=== PATIENT | male | born 1955 | race Caucasian/White ===

== ENCOUNTER 2018-05-21 13:52 | Emergency (ER) | payer OTHER ==
--- OUTSIDE RECORDS SUMMARY | 2018-05-21 14:29 | XMS REPORT | Clinical Summary ---
:1955 Author Organization [facility] Address [address] [place] [address] Care Team Providers Name Role Phone Asked, No Pcp Primary Care Provider Unavailable Allergies No Known Allergies Medications Medication Sig Dispensed Refills Start Date End Date Status simvastatin (ZOCOR) 20 MG tablet 0 11/08/2016 Active MULTAQ 400 mg tablet 0 11/08/2016 Active TOPROL XL 25 mg 24 hr tablet 0 11/08/2016 Active XARELTO 20 mg tablet 0 12/17/2016 Active Active Problems Not on file Social History Tobacco Use Types Packs/Day Years Used Date Never Smoker Alcohol Use Drinks/Week oz/Week Comments No Sex Assigned at Date Recorded Not on file Job Start Date Occupation Industry Not on file Not on file Not on file Travel History Travel Start Travel End No recent travel history available. Last Filed Vital Signs Not on file Plan of Treatment Health Maintenance Due Date Last Done Comments COLON CANCER SCREENING 2003 SHINGLES VACCINES (1 of 2) 2003 INFLUENZA VACCINE 11/09/2017 PNEUMOCOCCAL POLYSACCHARIDE VACCINE AGE 65 AND OVER 2018 PNEUMOCOCCAL-13 2018 Results Not on fileafter 05/20/2017 Insurance Payer Benefit Plan / Group Subscriber ID Type Phone Address BCBS BCBS CHOICE PPO/FEDERAL EMPL PPO xxxxxxxxxxxx PPO (Work) Advance Directives Patient has advance care planning documents on file. For more information, please contact:[id number] [place] [address]
[2018-05-21] MEDS ORDERED: HYDROCODONE/APAP 7.5/325 MG TAB ONE (14:46)
--- NOTE | 2018-05-21 15:24 | RAD REPORT ---
EXAM DESCRIPTION: RAD - Chest Single View - 05/21/2018 3:03 pm CLINICAL HISTORY: Fall, rib pain COMPARISON: May 2008 TECHNIQUE: AP portable chest image was obtained 1444 hours . FINDINGS: Fibrotic lung pattern is present. No pulmonary contusion or acute lung parenchymal process . Heart and vasculature are normal. No measurable pleural effusion and no pneumothorax. No acute bone abnormality seen. Rib detail is better assessed with directed imaging. No acute aortic findings susp ected. IMPRESSION: Fibrotic lung pattern with no acute cardiopulmonary finding. Concerns for rib fracture c an be further addressed with directed right ribs series.
--- NOTE | 2018-05-21 15:31 | RAD REPORT ---
EXAM DESCRIPTION: Ribs Right - 05/21/2018 3:03 pm CLINICAL HISTORY: Fall, right-sided rib pain is COMPARISON: None. FINDINGS: No displaced or nondisplaced acute rib fractures seen. There does appear to be remodeling from an old posterior right eighth rib fracture. Patient has prominent costochondral calcifications. No aggressive rib lesion. No underlying pneumothorax, effusion, infiltrate or pulmonary contusion. IMPRESSION: No acute right-sided rib, lung parenchymal or pleural finding.
--- NOTE | 2018-05-21 15:41 | EDPHYS ---
Physician Documentation [facility] Name: Garret Castro Age: 63 yrs Sex: Male : 1955 Arrival Date: 05/21/2018 Time: 13:53 Bed Treatment Private MD: Joao Lay ED Physician Pasquale Peterson HPI: 05/21 15:53 This 63 yrs old Male presents to ER via Ambulatory with complaints of Rib kb Pain-Fell off Ladder Thurs., InQuicker. 15:53 Details of fall: The patient fell from a height, from a ladder, approximately 7 feet. kb Onset: The symptoms/episode began/occurred 3 day(s) ago. Associated injuries: The patient sustained injury to the chest, specifically the right lateral anterior chest, abrasion, pain with breathing, pain with movement, tenderness. Severity of symptoms: At their worst the symptoms were moderate, in the emergency department the symptoms are unchanged. The patient has not experienced similar symptoms in the past. The patient has not recently seen a physician. Historical: - Allergies: 14:24 No Known Allergies; ss - Home Meds: 14:24 simvastatin [Active]; ss 14:24 metoprolol [Active]; ss - Immunization history:: Adult Immunizations up to date. - Social history:: Smoking status: Patient/guardian denies using tobacco. - Ebola Screening: : Patient denies exposure to infectious person Patient denies travel to an Ebola-affected area in the 21 days before illness onset. ROS: 15:52 Constitutional: Negative for fever, chills, and weight loss, Respiratory: Negative for kb shortness of breath, cough, wheezing, and pleuritic chest pain, Abdomen/GI: Negative for abdominal pain, nausea, vomiting, diarrhea, and constipation, Back: Negative for injury and pain, : Negative for injury, bleeding, discharge, and swelling, MS/Extremity: Negative for injury and deformity, Skin: Negative for injury, rash, and discoloration, Neuro: Negative for headache, weakness, numbness, tingling, and seizure. 15:52 Cardiovascular: Positive for chest pain, with cough, with movement, of the right lateral anterior chest. Exam: 15:52 Constitutional: This is a well developed, well nourished patient who is awake, alert, kb and in no acute distress. Head/Face: Normocephalic, atraumatic. Cardiovascular: Regular rate and rhythm with a normal S1 and S2. No gallops, murmurs, or rubs. Normal PMI, no JVD. No pulse deficits. Respiratory: Lungs have equal breath sounds bilaterally, clear to auscultation and percussion. No rales, rhonchi or wheezes noted. No increased work of breathing, no retractions or nasal flaring. Abdomen/GI: Soft, non-tender, with normal bowel sounds. No distension or tympany. No guarding or rebound. No evidence of tenderness throughout. Skin: Warm, dry with normal turgor. Normal color with no rashes, no lesions, and no evidence of cellulitis. MS/ Extremity: Pulses equal, no cyanosis. Neurovascular intact. Full, normal range of motion. Neuro: Awake and alert, GCS 15, oriented to person, place, time, and situation. Cranial nerves II-XII grossly intact. Motor strength 5/5 in all extremities. Sensory grossly intact. Cerebellar exam normal. Normal gait. 15:52 Chest/axilla: Inspection: normal, Palpation: tenderness, that is moderate, of the right lateral anterior chest, that totally reproduces the patient's complaints. Vital Signs: 14:24 BP 133 / 84; Pulse 83; Resp 16; Temp 98.2(TE); Pulse Ox 99% on R/A; Weight 88.45 kg; ss Height 5 ft. 11 in. (180.34 cm); Pain 0/10; 14:24 Body Mass Index 27.20 (88.45 kg, 180.34 cm) ss MDM: 14:26 Patient medically screened. kb 15:51 Data reviewed: vital signs, nurses notes. Data interpreted: Pulse oximetry: on room air kb is 99 %. Interpretation: normal. Counseling: I had a detailed discussion with the patient and/or guardian regarding: the historical points, exam findings, and any diagnostic results supporting the discharge/admit diagnosis, radiology results, the need for outpatient follow up, a family practitioner, to return to the emergency department if symptoms worsen or persist or if there are any questions or concerns that arise at home. 05/21 14:24 Order name: Ribs Right XRAY; Complete Time: 15:37 kb 05/21 14:24 Order name: Chest Single View XRAY; Complete Time: 15:30 kb Administered Medications: 14:37 Drug: Gila (7.5 mg-325 mg) 1 tabs Route: PO; ss 15:45 Follow up: Response: No adverse reaction; Pain is decreased ss Disposition: 18:35 Co-signature as Attending Physician, Pasquale Peterson MD. rn Disposition: 05/21/18 15:40 Discharged to Home. Impression: Contusion of right front wall of thorax. - Condition is Stable. - Discharge Instructions: Chest Contusion, [id number]. - Medication Reconciliation Form, Thank You Letter, Antibiotic Education, Prescription Opioid Use form. - Follow up: Emergency Department; When: As needed; Reason: Worsening of condition. Follow up: Private Physician; When: 2 - 3 days; Reason: Recheck today's complaints, Continuance of care, Re-evaluation by your physician. Signatures: Dispatcher [employer] EDMS Gunjan Renee, FINAL INSPECTOR MOVEMENT ASSEMBLY-C FINAL INSPECTOR MOVEMENT ASSEMBLY-Ckb Pasquale Peterson MD MD rn Smirch, Shelby, RN RN Corrections: (The following items were deleted from the chart) 15:45 15:40 05/21/2018 15:40 Discharged to Home. Impression: Contusion of right front wall of ss thorax. Condition is Stable. Forms are Medication Reconciliation Form, Thank You Letter, Antibiotic Education, Prescription Opioid Use. Follow up: Emergency Department; When: As needed; Reason: Worsening of condition. Follow up: Private Physician; When: 2 - 3 days; Reason: Recheck today's complaints, Continuance of care, Re-evaluation by your physician. kb
--- NOTE | 2018-05-21 15:41 | ER ---
Nurse's Notes [facility] Name: Garret Castro Age: 63 yrs Sex: Male : 1955 Arrival Date: 05/21/2018 Time: 13:53 Bed Treatment Private MD: Joao Lay Diagnosis: Contusion of right front wall of thorax Presentation: 05/21 14:22 Presenting complaint: Patient states: "I fell off of a 7 foot ladder , and it's ss real sensitive to touch (points to R lateral chest wall.)". Transition of care: patient was not received from another setting of care. Onset of symptoms was May 18, 2018. Risk Assessment: Do you want to hurt yourself or someone else? Patient reports no desire to harm self or others. Initial Sepsis Screen: Does the patient meet any 2 criteria? No. Patient's initial sepsis screen is negative. Does the patient have a suspected source of infection? No. Patient's initial sepsis screen is negative. Care prior to arrival: None. 14:22 Method Of Arrival: Ambulatory ss 14:22 Acuity: JOSH 4 ss Historical: - Allergies: 14:24 No Known Allergies; ss - Home Meds: 14:24 simvastatin [Active]; ss 14:24 metoprolol [Active]; ss - Immunization history:: Adult Immunizations up to date. - Social history:: Smoking status: Patient/guardian denies using tobacco. - Ebola Screening: : Patient denies exposure to infectious person Patient denies travel to an Ebola-affected area in the 21 days before illness onset. Screenin:25 Abuse screen: Denies threats or abuse. Denies injuries from another. Nutritional ss screening: No deficits noted. Tuberculosis screening: No symptoms or risk factors identified. Never had TB. Fall Risk None identified. Assessment: 14:25 General: Appears in no apparent distress. comfortable, Behavior is calm, cooperative, ss Denies fever, feeling ill, fatigue, chills. Pain: Complains of pain in R lateral chest wall Pain currently is 3 out of 10 on a pain scale. Quality of pain is described as tender, Pain began 4 days ago Is continuous, Aggravated by laughing, coughing/ sneezing. Neuro: Level of Consciousness is awake, alert, obeys commands, Oriented to person, place, time, situation, Thermoscrew Operator are equal bilaterally Speech is normal. Cardiovascular: Capillary refill < 3 seconds is brisk in bilateral fingers. Respiratory: Airway is patent is compromised Respiratory effort is even, unlabored, Respiratory pattern is regular, symmetrical. Respiratory:. GI: Patient currently denies diarrhea, nausea, vomiting. : No signs and/or symptoms were reported regarding the genitourinary system. EENT: Nares are clear Throat is clear. Derm: Skin is pink, warm \\T\\ dry. normal. Musculoskeletal: Circulation, motion, and sensation intact. Range of motion: intact in all extremities, Swelling absent. Vital Signs: 14:24 BP 133 / 84; Pulse 83; Resp 16; Temp 98.2(TE); Pulse Ox 99% on R/A; Weight 88.45 kg; ss Height 5 ft. 11 in. (180.34 cm); Pain 0/10; 14:24 Body Mass Index 27.20 (88.45 kg, 180.34 cm) ss ED Course: 13:53 Patient arrived in ED. as 13:54 Joao Lay MD is Private Physician. as 14:23 Triage completed. ss 14:24 Arm band placed on right wrist. ss 14:25 Patient has correct armband on for positive identification. Bed in low position. Call ss light in reach. 14:25 Patient maintains SpO2 saturation greater than 95% on room air. ss 14:26 Gunjna Renee FNP-C is PHCP. kb 14:26 Pasquale Peterson MD is Attending Physician. kb 14:33 Matthew Shore, [place] is Primary Nurse. la1 14:59 X-ray completed. Patient tolerated procedure well. sg4 15:01 Ribs Right XRAY In Process Unspecified. EDMS 15:01 Chest Single View XRAY In Process Unspecified. EDMS 15:44 No provider procedures requiring assistance completed. Patient did not have IV access ss during this emergency room visit. Administered Medications: 14:37 Drug: Closplint (7.5 mg-325 mg) 1 tabs Route: PO; ss 15:45 Follow up: Response: No adverse reaction; Pain is decreased ss Outcome: 15:40 Discharge ordered by . kb 15:44 Discharged to home ambulatory, with family. ss 15:44 Condition: good 15:44 Discharge instructions given to patient, family, Instructed on discharge instructions, follow up and referral plans. Demonstrated understanding of instructions, follow-up care. 15:45 Patient left the ED. ss Signatures: Dispatcher [employer] Gunjan Valenzuela, MATTY MCPHERSON-Destinee Gavin Shelby, RN RN Matthew Frazier RN RN laQuiana Butterfield sg4
== END 2018-05-21 15:45 | disposition home or self-care (01) ==
LOC: ER 13:52
DX: S20.211A Contusion of right front wall of thorax, initial encounter (principal); W11.XXXA Fall on and from ladder, initial encounter
CPT/HCPCS: 71045; 99284

== ENCOUNTER 2023-07-27 17:43 | Inpatient (IN) | payer OTHER ==
--- NOTE | 2023-07-27 18:44 | RAD REPORT ---
EXAM DESCRIPTION: RAD - Chest Single View - 07/27/2023 6:33 pm CLINICAL HISTORY: Cough;Fever Chest pain. COMPARISON: Chest Single View dated 02/08/2023; Chest Pa And Lat (2 Views) dated 06/18/2019; Chest Sin gle View dated 05/21/2018; CHEST SINGLE VIEW dated 06/08/2008 FINDINGS: Portable technique limits examination quality. Mild opacities are present in the right base likely representing infiltrate/pneumonia. The lungs are otherwise grossly clear. The heart is normal in size. No displaced fractures. IMPRESSION: Developing right lung base pneumonia.
[2023-07-27] MEDS ORDERED: ONDANSETRON 4 MG/2 ML VIAL ONE ×2 (19:00→20:19)
[2023-07-27] MEDS ORDERED: NA CHLORIDE 0.9% 500 ML ONE (19:00)
[2023-07-27 19:09] LABS: Absolute Eosinophils 0.1 K/uL (0-0.5); Absolute Lymphocytes (CBC) 0.4 K/uL (0.7-4.9); Absolute Monocytes 0.5 K/uL (0.1-1.3); Absolute Neutrophil 7.4 K/uL (1.8-8.0); Basophils % 0.2 % (0-1.3); Eosinophils % 0.9 % (0-4.4); Hematocrit 44.3 % (39.6-49.0); Lymphocytes % 4.3 % (15.3-44.8); MCH 30.2 pg (27.0-35.0); MCHC 33.9 g/dL (32.0-36.0); MPV 8.6 fL (7.6-11.3); Monocytes % 5.5 % (3.3-12.3); Neutrophils % 89.1 % (41.7-73.7); Nucleated Red Blood Cells % 0.2 % (0-0); Platelets 187 thou/uL (152-406); RBC Red Blood Cell Count 4.98 M/uL (4.33-5.43); Red Cell Distribution Width 15.9 % (12.1-15.2)
[2023-07-27 19:24] LABS: SARS-CoV-2 Antigen CONTROL BLUE LINE VIS/BG OK; SARS-CoV-2 Antigen Rapid Res Negative (Negative)
[2023-07-27 19:29] LABS: Albumin 3.6 g/dL (3.4-5.0); Albumin/Globulin Ratio 0.9 (1.1-1.8); Bilirubin Total 0.5 mg/dL (0.2-1.0); Protein, Total 7.6 g/dL (6.4-8.2); Troponin High Sensitivity 4.9 pg/mL (<58.9)
[2023-07-27] MEDS ORDERED: CEFTRIAXONE 1000 MG/VIAL ONE (19:51)
[2023-07-27] MEDS ORDERED: NA CHLORIDE 0.9% 100 ML ONE (19:52)
[2023-07-27] MEDS ORDERED: AZITHROMYCIN 500 MG INJ IVPB ONE (19:52)
--- NOTE | 2023-07-27 20:04 | EDPHYS ---
Physician Documentation [facility] Name: Garret Castro Age: 68 yrs Sex: Male : 1955 Arrival Date: 07/27/2023 Time: 17:43 Bed 7 Private MD: ED Physician Elvis Mooney HPI: 07/26 17:56 This 68 yrs old Male presents to ER via Unassigned with complaints of Vomiting, General kb Weakness. 17:56 Pt is a 68 year old male who presents for cough and congestion that started 6 days ago. kb Today pt has had fever, chills and vomiting. Denies abd pain, diarrhea. . Historical: - Allergies: 18:00 No Known Allergies; ko1 - PMHx: 18:00 Hypertensive disorder; Depressive disorder; Anxiety; Hypercholesterolemia; ko1 - Immunization history:: Adult Immunizations up to date. - Infectious Disease History:: Denies. - Social history:: Smoking status: Patient denies any tobacco usage or history of. ROS: 17:56 Constitutional: As per HPI kb Exam: 17:56 Constitutional: This is a well developed, well nourished patient who is awake, alert, kb and in no acute distress. Head/Face: Normocephalic, atraumatic. ENT: Moist Mucous membranes Cardiovascular: Regular rate Respiratory: Respirations even and unlabored. No increased work of breathing. Talking in full sentences Abdomen/GI: Soft, non-tender. No distention Skin: Warm, dry with normal turgor. Normal color. MS/ Extremity: Pulses equal, no cyanosis. Neurovascular intact. Full, normal range of motion. Neuro: Awake and alert, GCS 15, oriented to person, place, time, and situation. Moves all extremities. Normal gait. 19:12 ECG was reviewed by the Attending Physician. kb Vital Signs: 17:58 BP 129 / 75; Pulse 115; Resp 18; Temp 98.4; Pulse Ox 93% on R/A; ko1 19:08 BP 118 / 75; Pulse 111; Resp 17; Pulse Ox 91% on R/A; ph 20:10 BP 122 / 72; Pulse 103; Resp 20; Pulse Ox 93% ; jj7 21:15 BP 106 / 71; Pulse 102; Resp 15; Pulse Ox 94% ; jj7 22:10 BP 109 / 73; Pulse 101; Resp 16; Temp 98.7; Pulse Ox 94% ; jj7 MDM: 17:49 Patient medically screened. kb 20:03 Differential diagnosis: pneumonia, uri, covid, flu. Data reviewed: vital signs, nurses kb notes. Consideration of Admission/Observation Patient was admitted/placed on observation. Escalation of care including admission/observation considered. Management of patient was discussed with the following: Hospitalist: Dr Leslie accepts pt for admission. Historians other than the Patient: Parent: . Counseling: I had a detailed discussion with the patient and/or guardian regarding the historical points, exam findings, and any diagnostic results supporting the discharge/admit diagnosis, lab results, radiology results, the need for further work-up and treatment in the hospital. 07/26 17:59 Order name: CBC with Diff; Complete Time: 19:12 kb 07/26 17:59 Order name: NT PRO-BNP; Complete Time: 19:33 kb 07/26 17:59 Order name: Troponin HS; Complete Time: 19:33 kb 07/26 17:59 Order name: CMP; Complete Time: 19:33 kb 07/26 17:59 Order name: Lipase; Complete Time: 19:33 kb 07/26 17:59 Order name: Flu; Complete Time: 19:28 kb 07/26 17:59 Order name: SARS-COV-2 Antigen Rapid; Complete Time: 19:28 kb 07/26 19:13 Order name: Blood Culture Adult (2) kb 07/26 19:13 Order name: Lactate w/ 2H reflex if indic.; Complete Time: 20:55 kb 07/26 19:13 Order name: Protime (+inr); Complete Time: 20:43 kb 07/26 19:13 Order name: Ptt, Activated; Complete Time: 20:43 kb 07/26 20:43 Order name: Urinalysis w/ reflexes EDMS 07/26 20:43 Order name: CBC with Automated Diff EDMS 07/26 20:43 Order name: CBC with Automated Diff EDMS 07/26 20:43 Order name: Comprehensive Metabolic Panel EDMS 07/26 20:43 Order name: Comprehensive Metabolic Panel EDMS 07/26 17:59 Order name: XRAY Chest (1 view); Complete Time: 18:45 kb 07/26 17:59 Order name: EKG; Complete Time: 18:00 kb 07/26 17:59 Order name: Cardiac monitoring; Complete Time: 19:12 kb 07/26 17:59 Order name: EKG - Nurse/Tech; Complete Time: 19:12 kb 07/26 17:59 Order name: IV Saline Lock; Complete Time: 19:03 kb 07/26 17:59 Order name: Labs collected and sent; Complete Time: 19:03 kb 07/26 17:59 Order name: O2 Per Protocol; Complete Time: 19:03 kb 07/26 17:59 Order name: O2 Sat Monitoring; Complete Time: 19:04 kb EC:12 Rate is 112 beats/min. Rhythm is regular. QRS [place] is Normal. AR interval is normal at kb 142 msec. QRS interval is normal at 88 msec. QT interval is normal at 444 msec. Administered Medications: 19:03 Drug: NS 0.9% IV 500 ml IV at calculated rate continuous Route: IV; Rate: calculated ph rate; Site: right antecubital; 20:30 Follow up: IV Status: Completed infusion jj7 19:03 Drug: Ondansetron IVP 4 mg IVP once; over 2 minutes Route: IVP; Site: right antecubital;ph 19:30 Follow up: Response: Nausea is decreased jj7 20:22 Drug: Zithromax IVPB 500 mg IVPB once over 1 hrs; mix in 250 mL NS Route: IVPB; Infused jj7 Over: 1 hrs; Site: right antecubital; 21:30 Follow up: IV Status: Completed infusion jj7 20:23 Drug: Rocephin IV 1 grams IV at calculated rate once; Given slow IV push per pharmacy jj7 instructions Route: IV; Rate: calculated rate; Site: right antecubital; 20:30 Follow up: IV Status: Completed infusion jj7 20:24 Drug: Ondansetron IVP 4 mg IVP once; over 2 minutes Route: IVP; Site: right antecubital;jj7 20:30 Follow up: Response: Nausea is decreased jj7 22:02 Drug: metoCLOPramide IVP 10 mg IVP once; over 1 to 2 minutes, Route: IVP; Site: right vc1 antecubital; 22:14 Follow up: Response: Nausea is decreased jj7 Disposition Summary: 07/27/23 20:04 Hospitalization Ordered Notes: Hospitalization Status: Observation kb Provider: Elfego Leslie Location: Telemetry/MedSurg (observation) kb Condition: Stable kb Problem: new kb Symptoms: are unchanged kb Bed/Room Type: Standard Room Assignment: 206(07/27/23 21:00) wm Diagnosis - Pneumonia, unspecified organism kb - Weakness kb Forms: - Medication Reconciliation Form kb - SBAR form kb - Leadership Thank You Letter kb Signatures: Dispatcher [employer] EDMS Gunjan Renee FNP-Ritu PROFESSOR OF ENVIRONMENTAL ENGINEERING-CkElle Maradiaga, RN RN Mine Salgado Marilyn Olivia RN RN vc1 Miriam Medina RN RN ko1 George Toledo RN RN jj7 Corrections: (The following items were deleted from the chart) 18:00 17:59 CBC+H.LAB.BRZ ordered. EDMS EDMS 18:00 17:59 PROBNP+C.LAB.BRZ ordered. EDMS EDMS 18:00 17:59 Troponin High Sensitivity+C.LAB.BRZ ordered. EDMS EDMS 18:00 17:59 COMPREHENSIVE METABOLIC PANEL+C.LAB.BRZ ordered. EDMS EDMS 18:00 17:59 LIPASE+C.LAB.BRZ ordered. EDMS EDMS 18:00 17:59 Influenza Screen (A \T\ B)+BA.LAB.BRZ ordered. EDMS EDMS 18:00 17:59 SARS-COV-2 Antigen Rapid+I.LAB.BRZ ordered. EDMS EDMS 21:00 20:04 kb wm
--- NOTE | 2023-07-27 20:04 | ER ---
Nurse's Notes [facility] Name: Garret Castro Age: 68 yrs Sex: Male : 1955 Arrival Date: 07/27/2023 Time: 17:43 Bed 7 Private MD: Diagnosis: Pneumonia, unspecified organism;Weakness Presentation: 07/26 17:58 Chief complaint: Patient states: cough, congestion x 6 days now n/v cant keep anything ko1 down, has had Tmax of 100. Coronavirus screen: At this time, the client does not indicate any symptoms associated with coronavirus-19. Ebola Screen: No symptoms or risks identified at this time. Initial Sepsis Screen: Does the patient meet any 2 criteria? No. Patient's initial sepsis screen is negative. Does the patient have a suspected source of infection? No. Patient's initial sepsis screen is negative. Risk Assessment: Do you want to hurt yourself or someone else? Patient reports no desire to harm self or others. Onset of symptoms is unknown. 17:58 Method Of Arrival: Wheelchair ko1 17:58 Acuity: JOSH 3 ko1 Triage Assessment: 18:00 General: Appears in no apparent distress. Behavior is calm, cooperative, appropriate ko1 for age. Pain: Complains of pain in abdomen. EENT: Reports nasal congestion. Respiratory: Reports cough that is. GI: Reports nausea, vomiting. Historical: - Allergies: 18:00 No Known Allergies; ko1 - PMHx: 18:00 Hypertensive disorder; Depressive disorder; Anxiety; Hypercholesterolemia; ko1 - Immunization history:: Adult Immunizations up to date. - Infectious Disease History:: Denies. - Social history:: Smoking status: Patient denies any tobacco usage or history of. Screenin:41 Abuse screen: Denies threats or abuse. Denies injuries from another. Nutritional ph screening: No deficits noted. Tuberculosis screening: No symptoms or risk factors identified. 19:08 [facility] ED Fall Risk Assessment (Adult) History of falling in the last 3 months, ph including since admission No falls in past 3 months (0 pts) Confusion or Disorientation No (0 pts) Intoxicated or Sedated No (0 pts) Impaired Gait No (0 pts) Mobility Assist Device Used No (0 pt) Altered Elimination No (0 pt) Score/Fall Risk Level 0 - 2 = Low Risk Oriented to surroundings, Maintained a safe environment, Hourly rounding (assess needs \T\ fall precautionary measures) done. Assessment: 19:04 General: Appears in no apparent distress. comfortable, well groomed, Behavior is calm, ph cooperative, appropriate for age, Reports fever for 1-2 days. Pain: Denies pain. Neuro: Level of Consciousness is awake, alert, obeys commands, Oriented to person, place, time, situation. Cardiovascular: Capillary refill < 3 seconds in bilateral fingers Patient's skin is warm and dry. Respiratory: Airway is patent Respiratory effort is even, unlabored, Respiratory pattern is regular, symmetrical. GI: Abdomen is non-distended, Reports nausea, vomiting, Patient currently denies abdominal pain, vomiting. 20:05 General: Appears in no apparent distress. comfortable, Behavior is calm, cooperative, jj7 appropriate for age. Respiratory: Airway is patent Respiratory effort is even, unlabored, Respiratory pattern is regular, symmetrical. Vital Signs: 17:58 BP 129 / 75; Pulse 115; Resp 18; Temp 98.4; Pulse Ox 93% on R/A; ko1 19:08 BP 118 / 75; Pulse 111; Resp 17; Pulse Ox 91% on R/A; ph 20:10 BP 122 / 72; Pulse 103; Resp 20; Pulse Ox 93% ; jj7 21:15 BP 106 / 71; Pulse 102; Resp 15; Pulse Ox 94% ; jj7 22:10 BP 109 / 73; Pulse 101; Resp 16; Temp 98.7; Pulse Ox 94% ; jj7 ED Course: 17:45 Patient arrived in ED. im 17:49 Gun[facility] Renee F[facility]-C is [facility]. kb 17:49 Elvis Mooney MD is Attending Physician. kb 18:00 Triage completed. ko1 18:00 Arm band placed on right wrist. Patient placed in an exam room, on a stretcher, on ko1 monitoring manager, on pulse oximetry, Patient notified of wait time. 18:35 XRAY Chest (1 view) In Process Unspecified. EDMS 18:37 Elle Paredes, RN is Primary Nurse. ph 19:03 Inserted saline lock: 22 gauge in right antecubital area, using aseptic technique. pf1 Blood collected. 19:03 Initial lab(s) drawn, by ED staff, sent to lab. pf1 19:04 CBC with Diff Sent. ph 19:04 NT PRO-BNP Sent. ph 19:04 Troponin HS Sent. ph 19:04 Lipase Sent. ph 19:04 Flu Sent. ph 19:04 SARS-COV-2 Antigen Rapid Sent. ph 19:04 CMP Sent. ph 19:09 Patient has correct armband on for positive identification. Bed in low position. Call ph light in reach. Side rails up X 1. Pulse ox on. NIBP on. Door closed. Noise minimized. Warm blanket given. 19:12 EKG done, by ED staff, reviewed by Gunjan STARR. ph 20:04 Elfego Leslie MD is Hospitalizing Provider. kb 20:22 Blood Culture Adult (2) Sent. j7 20:22 Lactate w/ 2H reflex if indic. Sent. jj7 20:22 Protime (+inr) Sent. jj7 20:22 Ptt, Activated Sent. jj7 20:38 Primary Nurse role handed off by Elle Paredes RN wm 22:10 No provider procedures requiring assistance completed. Patient admitted, IV remains in [facility] place. Administered Medications: 19:03 Drug: NS 0.9% IV 500 ml IV at calculated rate continuous Route: IV; Rate: calculated ph rate; Site: right antecubital; 20:30 Follow up: IV Status: Completed infusion j7 19:03 Drug: Ondansetron IVP 4 mg IVP once; over 2 minutes Route: IVP; Site: right antecubital;ph 19:30 Follow up: Response: Nausea is decreased j7 20:22 Drug: Zithromax IVPB 500 mg IVPB once over 1 hrs; mix in 250 mL NS Route: IVPB; Infused j7 Over: 1 hrs; Site: right antecubital; 21:30 Follow up: IV Status: Completed infusion j7 20:23 Drug: Rocephin IV 1 grams IV at calculated rate once; Given slow IV push per pharmacy j7 instructions Route: IV; Rate: calculated rate; Site: right antecubital; 20:30 Follow up: IV Status: Completed infusion j7 20:24 Drug: Ondansetron IVP 4 mg IVP once; over 2 minutes Route: IVP; Site: right antecubital;j7 20:30 Follow up: Response: Nausea is decreased jj7 22:02 Drug: metoCLOPramide IVP 10 mg IVP once; over 1 to 2 minutes, Route: IVP; Site: right vc1 antecubital; 22:14 Follow up: Response: Nausea is decreased jj7 Medication: 19:08 VIS not applicable for this client. ph Outcome: 20:04 Decision to Hospitalize by Provider. kb 22:10 Admitted to Med/surg accompanied by tech, via stretcher, room 206, Report called to giselle SBAR FORM FAXED TO 2ND FLOOR 22:10 Condition: good 22:14 Patient left the ED. jj7 Signatures: Dispatcher [employer] EDMS Gunjan Renee, ESTATE PLANNING DIRECTOR-C ESTATE PLANNING DIRECTOR-Ckb Elle Paredes, RN RN Mine Salgado Marilyn Olivia RN RN vc1 Miriam Medina RN RN ko1 George Toledo RN RN jjFabiana Graham RN RN pf1 Deepthi Green Corrections: (The following items were deleted from the chart) 22:16 21:15 BP 106 / 71; Pulse 102bpm; Resp 15bpm; Pulse Ox 94%; Temp 98.7F; jj7 jj7 22:21 22:17 Patient left the ED. jj7 jj7
[2023-07-27 20:37] LABS: PT Prothrombin Time 11.7 SECONDS (9.5-12.5); PTT, Activated Partial Thromb 24.8 SECONDS (24.3-36.9); Protime INR 1.07
[2023-07-27] MEDS ORDERED: ACETAMINOPHEN 325 MG TABLET PO PRN (20:39)
[2023-07-27] MEDS ORDERED: ONDANSETRON 4 MG/2 ML VIAL IV PRN (20:39)
[2023-07-27] MEDS ORDERED: ALBUTEROL 2.5 MG/3 ML NEB SOL NEB PRN (20:39)
--- NOTE | 2023-07-27 20:39 | P.HP ---
Certification for Inpatient Patient admitted to: Inpatient With expected LOS: >2 Midnights Practitioner: I am a practitioner with admitting privileges, knowledge of patient current condition, hospital course, and medical plan of care. Services: Services provided to patient in accordance with Admission requirements found in Title 42 Section 412.3 of the Code of Federal Regulations Patient History Date of Service: 07/27/23 Reason for admission: Fever, generalised weakness History of Present Illness: 68 yrs old Male with past medical history of hypertension, hyperlipidemia, a nxiety, depression, who came to ER with fever cough and congestion which has been going on for the last 1 week and has been progressively getting worse associated with cough with mucoid expectoration. Today patient had multiple episodes of vomiting and could not hold anything down. Associated with generalized weakness and fever and chills occasionally. Patient denies any abdominal pain. No diarrhea. No sick contacts. Patient was assessed in the ER and was found to have right lower lobe pneumonia and dehydration and was admitted for further management Home medications list reviewed: Yes - Past Medical/Surgical History Past Medical History: Reviewed- Non-Contributory Past Surgical History: Reviewed- Non-Contributory - Family History Family History: Reviewed- Non-Contributory - Social History Smoking Status: Never smoker Review of Systems 10-point ROS is otherwise unremarkable Physical Examination - Vital Signs Temperature: 98.6 F Blood Pressure: 112/78 Pulse: 78 Respirations: 18 Pulse Ox (%): 96 - Physical Exam General: Alert, In no apparent distress, Oriented x3, Cooperative HEENT: Atraumatic, Normocephalic Neck: Supple, JVD not distended Respiratory: Diminished, Crackles/rales Cardiovascular: No edema, Regular rate/rhythm, Normal S1 S2, No rubs Capillary refill: <2 Seconds Gastrointestinal: Soft and benign, W/out hepatosplenomegaly, No ascites, No tenderness Musculoskeletal: No clubbing, No swelling Integumentary: No rashes, No breakdown Neurological: Normal gait, Normal speech, Normal strength at 5/5 x4 extr, Cranial nerves 3-12 intact Lymphatics: No axilla or inguinal lymphadenopathy - Studies Laboratory Data (last 24 hrs) 07/27/23 07/27/23 07/27/23 20:10 18:50 18:50 WBC 8.30 Hgb 15.0 Hct 44.3 Plt Count 187 PT 11.7 INR 1.07 APTT 24.8 Sodium 135 L Potassium 4.0 BUN 21 H Creatinine 1.11 Glucose 117 H Total Bilirubin 0.5 AST 24 ALT 27 Alkaline Phosphatase 66 Lipase 19 Microbiology Data (last 24 hrs): 07/27/23 18:55 Nasopharnyx Influenza Type A Antigen Screen - Final 07/27/23 18:55 Nasopharnyx Influenza Type B Antigen Screen - Final Assessment and Plan - Problems (Diagnosis) (1) Right lower lobe pneumonia Current Visit: Yes Status: Acute Plan: Right lower lobe pneumonia Started on IV antibiotic Started on Rocephin and Zithromax Will obtain cultures Antitussives Hypertension Continue home medications available as needed Hyponatremia Dehydration IV hydration Monitor electrolytes and replace accordingly Monitor renal parameters GI/DVT prophylaxis Advanced directive full code Discharge Plan: Home Plan to discharge in: 48 Hours - Advance Directives Does patient have a Living Will: No Does patient have a Durable POA for Healthcare: No - Code Status/Comfort Care Code Status: Full Code Time Spent Managing Pts Care (In Minutes): 48
[2023-07-27] MEDS: CEFTRIAXONE 1,000 MG in NA CHLORIDE 0.9% 50 ML IVPB SCH (20:42)
[2023-07-27] MEDS: AZITHROMYCIN IV 500 MG in NA CHLORIDE 0.9% 250 ML IVPB SCH (20:42)
[2023-07-27] MEDS ORDERED: GUAIFENESIN/DM 5 ML UCUP PO PRN (20:43)
[2023-07-27] MEDS ORDERED: NA CHLORIDE 0.9% 50 ML ONE (21:56)
[2023-07-27] MEDS ORDERED: METOCLOPRAMIDE 10 MG/2mL INJ ONE (21:56)
[2023-07-27] MEDS: NA CHLORIDE 0.9% 1,000 ML IV SCH (22:34)
[2023-07-27 23:32] VITALS: BMI 29.4
[2023-07-27] MEDS: ATORVASTATIN 10 MG TAB PO ONE (23:42)
[2023-07-27] MEDS: lamoTRIgine 100 MG TAB PO ONE (23:42)
[2023-07-27] MEDS: BUSPIRONE HCL 5 MG TABLET PO ONE (23:42)
[2023-07-28 02:51] LABS: Specific Gravity 1.027 (1.005-1.030); Sqamous Epithelial <5 /HPF (None Seen); Urine Bacteria None Seen /HPF (<20); Urine Bilirubin NEGATIVE (Negative); Urine Blood Negative (Negative); Urine Clarity Turbid (Clear); Urine Color Yellow (Yellow); Urine Culture Reflex Order REFLEXED; Urine Glucose NEGATIVE (Negative); Urine Ketones 1+ (Negative); Urine Microscopic Reflex YN ORDER UMIC; Urine Mucus 1+ /HPF (None Seen); Urine Nitrite NEGATIVE (Negative); Urine Protein 1+ (Negative); Urine Urobilinogen Normal (Normal)
[2023-07-28 03:56] LABS: Absolute Lymphocytes (CBC) 0.8 K/uL (0.7-4.9); Basophils % 0.3 % (0-1.3); Hematocrit 39.4 % (39.6-49.0); Lymphocytes % 6.8 % (15.3-44.8); MCH 29.7 pg (27.0-35.0); MCHC 33.1 g/dL (32.0-36.0); MCV 89.7 fL (80-100); MPV 9.3 fL (7.6-11.3); Monocytes % 8.8 % (3.3-12.3); Neutrophils % 84.1 % (41.7-73.7); Platelets 185 thou/uL (152-406); RBC Red Blood Cell Count 4.39 M/uL (4.33-5.43); Red Cell Distribution Width 15.8 % (12.1-15.2)
[2023-07-28 04:09] LABS: Albumin/Globulin Ratio 0.9 (1.1-1.8); Anion Gap 7.8 mEq/L (5.0-15.0); Bilirubin Total 0.6 mg/dL (0.2-1.0); Globulin 3.5 g/dL (2.3-3.5); Potassium 3.8 mEq/L (3.5-5.1); Protein, Total 6.5 g/dL (6.4-8.2)
[2023-07-28 05:25] LABS: Phosphorus 3.2 mg/dL (2.5-4.9)
[2023-07-28] MEDS: ENOXAPARIN 40 MG/0.4 ML SQ SCH (08:15)
[2023-07-28] MEDS: METOPROLOL TAR 25 MG TAB PO SCH (08:16)
[2023-07-28] MEDS: POTASSIUM CL SA 10 MEQ TAB PO ONE (08:16)
[2023-07-28] MEDS: BUSPIRONE HCL 5 MG TABLET PO SCH (08:17)
[2023-07-28] MEDS: ESCITALOPRAM 20 MG TAB PO SCH (08:17)
[2023-07-28] MEDS: lamoTRIgine 100 MG TAB PO SCH (08:17)
--- NOTE | 2023-07-28 10:53 | P.PN ---
Subjective Date of Service: 07/28/23 Chief Complaint: Fever, generalised weakness Patient did he feels much better today. He reports intermittent nonproductive cough. No fever since admission. He denies shortness of breath. Physical Examination - Vital Signs Temperature: 97.6 F Blood Pressure: 114/66 Pulse: 83 Respirations: 16 Pulse Ox (%): 96 - Physical Exam General: Alert, In no apparent distress, Oriented x3, Obese HEENT: Mucous membr. moist/pink Neck: Supple, JVD not distended Respiratory: Clear to auscultation bilaterally, Crackles/rales (Mild right basilar crackles) Cardiovascular: No edema, Regular rate/rhythm, Normal S1 S2 Gastrointestinal: Soft and benign, Non-distended, No tenderness Musculoskeletal: No swelling Integumentary: No rashes, No cyanosis Neurological: Normal strength at 5/5 x4 extr Lymphatics: No axilla or inguinal lymphadenopathy - Studies Laboratory Data (last 24 hrs) 07/27/23 07/27/23 07/27/23 20:10 18:50 18:50 WBC 8.30 Hgb 15.0 Hct 44.3 Plt Count 187 PT 11.7 INR 1.07 APTT 24.8 Sodium 135 L Potassium 4.0 BUN 21 H Creatinine 1.11 Glucose 117 H Total Bilirubin 0.5 AST 24 ALT 27 Alkaline Phosphatase 66 Lipase 19 Microbiology Data (last 24 hrs): 07/27/23 18:55 Nasopharnyx Influenza Type A Antigen Screen - Final 07/27/23 18:55 Nasopharnyx Influenza Type B Antigen Screen - Final Assessment And Plan - Current Problems (Diagnosis) (1) Right lower lobe pneumonia Current Visit: Yes Status: Acute (2) UTI (urinary tract infection) Current Visit: Yes Status: Acute (3) Hyponatremia Current Visit: Yes Status: Acute (4) Essential hypertension Current Visit: Yes Status: Acute (5) Hyperlipidemia Current Visit: Yes Status: Acute - Plan Right lower lobe pneumonia * IV antibiotics * Chest physiotherapy-mucolytic's * Follow-up cultures * Activity as tolerated Acute cystitis without hematuria * UA suggest UTI * Urine culture is pending * Continue current antibiotics. Hyponatremia * Mild hyponatremia * Continue IV normal saline * Monitor BMP. Essential hypertension * Patient is currently normotensive * Continue home antihypertensives. DVT prophylaxis: Lovenox. CODE STATUS: Full code, surrogate decision maker is his spouse.
[2023-07-28] MEDS: ATORVASTATIN 10 MG TAB PO SCH (20:22)
[2023-07-29 07:14] LABS: Absolute Eosinophils 0.1 K/uL (0-0.5); Absolute Lymphocytes (CBC) 0.8 K/uL (0.7-4.9); Absolute Monocytes 0.6 K/uL (0.1-1.3); Absolute Neutrophil 6.8 K/uL (1.8-8.0); Basophils % 0.4 % (0-1.3); Eosinophils % 1.8 % (0-4.4); Hematocrit 36.9 % (39.6-49.0); Hemoglobin 12.6 g/dL (13.6-17.9); Lymphocytes % 9.2 % (15.3-44.8); MCH 30.6 pg (27.0-35.0); MCHC 34.2 g/dL (32.0-36.0); MCV 89.2 fL (80-100); Monocytes % 7.4 % (3.3-12.3); Neutrophils % 81.2 % (41.7-73.7); Nucleated Red Blood Cells % 0.1 % (0-0); Platelets 186 thou/uL (152-406); RBC Red Blood Cell Count 4.14 M/uL (4.33-5.43); Red Cell Distribution Width 15.9 % (12.1-15.2)
[2023-07-29 08:04] VITALS: O2SAT 97
[2023-07-29 08:40] VITALS: BP 143/82; TEMP 97.9
--- NOTE | 2023-07-29 09:18 | P.DS ---
Admission Date: 07/27/23 Discharge Date: 07/29/23 Disposition: ROUTINE DISCHARGE Discharge Condition: FAIR Reason for Admission: Fever, generalised weakness - Problems (1) Right lower lobe pneumonia Current Visit: Yes Status: Acute (2) UTI (urinary tract infection) Current Visit: Yes Status: Acute (3) Hyponatremia Current Visit: Yes Status: Acute (4) Essential hypertension Current Visit: Yes Status: Acute (5) Hyperlipidemia Current Visit: Yes Status: Acute Vital Signs/Physical Exam: Temp Pulse Resp BP Pulse Ox 97.9 F 77 17 143/82 H 97 07/29/23 08:00 07/29/23 08:35 07/29/23 08:00 07/29/23 08:35 07/29/23 08:00 Laboratory Data at Discharge: WBC 8.30 thou/uL (4.3-10.9) 07/29/23 06:26 Hgb 12.6 g/dL (13.6-17.9) L 07/29/23 06:26 Hct 36.9 % (39.6-49.0) L 07/29/23 06:26 Plt Count 186 thou/uL (152-406) 07/29/23 06:26 PT 11.7 SECONDS (9.5-12.5) 07/27/23 20:10 INR 1.07 07/27/23 20:10 APTT 24.8 SECONDS (24.3-36.9) 07/27/23 20:10 Sodium 137 mEq/L (136-145) 07/29/23 06:26 Potassium 4.0 mEq/L (3.5-5.1) 07/29/23 06:26 BUN 15 mg/dL (7-18) 07/29/23 06:26 Creatinine 0.91 mg/dL (0.70-1.30) 07/29/23 06:26 Glucose 122 mg/dL (74-106) H 07/29/23 06:26 Phosphorus 3.2 mg/dL (2.5-4.9) 07/28/23 03:18 Magnesium 2.0 mg/dL (1.6-2.4) 07/28/23 03:18 Total Bilirubin 0.6 mg/dL (0.2-1.0) 07/28/23 03:18 AST 25 U/L (15-37) 07/28/23 03:18 ALT 20 U/L (16-61) 07/28/23 03:18 Alkaline Phosphatase 49 U/L (45-117) D 07/28/23 03:18 Lipase 19 U/L (13-75) 07/27/23 18:50 Home Medications: Buspirone HCl [Buspar] 10 mg PO BID 07/27/23 Escitalopram [Lexapro*] 10 mg PO DAILY 07/27/23 Lamotrigine [Lamictal] 100 mg PO BID 07/27/23 Metoprolol Tartrate 25 mg PO DAILY 07/27/23 Simvastatin 20 mg PO BEDTIME 07/27/23 Azithromycin [Zithromax] 500 mg PO DAILY #7 tab 07/29/23 Cefuroxime Axetil [Cefuroxime] 500 mg PO BID #20 tab 07/29/23 Guaif/Dm [Robitussin Dm*] 5 ml PO Q6H PRN #1 bottle 07/29/23 Guaifenesin [Mucinex] 600 mg PO BID #20 tab 07/29/23 New Medications: Cefuroxime Axetil [Cefuroxime] 500 mg PO BID #20 tab Guaifenesin [Mucinex] 600 mg PO BID #20 tab Guaif/Dm [Robitussin Dm*] 5 ml PO Q6H PRN #1 bottle PRN Reason: Cough Azithromycin [Zithromax] 500 mg PO DAILY #7 tab Physician Discharge Instructions: Patient was admitted for fever and cough, diagnosed with pneumonia by CT chest. He was not hypoxic and had mild leukocytosis. CLinical condition improved overn ight. He is ambulatory, tolerating diet and vitals are stable. He is discharged with oral Cefuroxime and zithromax to continue treatment for the pneumonia. Pending test result; Final Urine culture. Diet: AHA Activity: Ad margo Followup: Geoffrey Mooney DO [Primary Care Provider] - 1-2 Weeks
== END 2023-07-29 11:45 | disposition home or self-care (01) | DRG 194 ==
LOC: ER 17:43 → ERHOLD 20:39 → 2ND 21:59
PROVIDERS: ADMIT Family Medicine; ATTEND Internal Medicine
DX: J18.9 Pneumonia, unspecified organism (principal); E87.1 Hypo-osmolality and hyponatremia; N30.00 Acute cystitis without hematuria; E86.0 Dehydration; I10 Essential (primary) hypertension; E78.00 Pure hypercholesterolemia, unspecified; Z79.899 Other long term (current) drug therapy
CPT/HCPCS: 36415; 71045; 80048; 80053; 81001; 83605; 83690; 83735; 83880; 84100; 84484; 85025; 85610; 85730; 87040; 87086; 87088; 87804; 87811; 93005; 94760; 96361; 96365; 96375; 99285; J0696; J1650; J2405; J2765; J7030; J7040; J7050

== ENCOUNTER 2023-08-09 15:36 | Observation (INO) | payer OTHER ==
[2023-08-09] MEDS ORDERED: NA CHLORIDE 0.9% 500 ML ONE (16:03)
[2023-08-09] MEDS ORDERED: NA CHLORIDE 0.9% 1,000 ML ONE (16:03)
[2023-08-09] MEDS ORDERED: ASPIRIN 81 MG CHEWABLE TABLET ONE (16:03)
[2023-08-09 16:13] LABS: Absolute Basophils 0.1 K/uL (0-0.5); Absolute Eosinophils 0.2 K/uL (0-0.5); Absolute Lymphocytes (CBC) 1.3 K/uL (0.7-4.9); Absolute Monocytes 0.7 K/uL (0.1-1.3); Eosinophils % 2.3 % (0-4.4); Hematocrit 40.9 % (39.6-49.0); Hemoglobin 13.8 g/dL (13.6-17.9); Lymphocytes % 15.4 % (15.3-44.8); MCH 30.3 pg (27.0-35.0); MCHC 33.7 g/dL (32.0-36.0); Monocytes % 8.3 % (3.3-12.3); PT Prothrombin Time 10.7 SECONDS (9.5-12.5); Platelets 307 thou/uL (152-406); Protime INR 0.97; RBC Red Blood Cell Count 4.55 M/uL (4.33-5.43); Red Cell Distribution Width 15.5 % (12.1-15.2)
--- NOTE | 2023-08-09 16:41 | RAD REPORT ---
EXAM DESCRIPTION: RAD - Chest Single View - 08/09/2023 4:36 pm CLINICAL HISTORY: CHEST PAIN Chest pain. COMPARISON: Chest Single View dated 07/27/2023; Chest Single View dated 02/08/2023; Chest Pa And Lat (2 Views) dated 06/18/2019; Chest Single View dated 05/21/2018 FINDINGS: Portable technique limits examination quality. Mild interstitial pulmonary edema. The heart is mildly enlarged. No displaced fractures. IMPRESSION: Mild CHF.
[2023-08-09 16:44] LABS: ALT/SGPT 26 U/L (16-61); AST/SGOT 21 U/L (15-37); Albumin 3.2 g/dL (3.4-5.0); Albumin/Globulin Ratio 0.8 (1.1-1.8); Alkaline Phosphatase 61 U/L (45-117); Anion Gap 7.9 mEq/L (5.0-15.0); BUN Blood Urea Nitrogen 16 mg/dL (7-18); Bicarbonate 28 mEq/L (21-32); Bilirubin Total 0.3 mg/dL (0.2-1.0); Globulin 3.9 g/dL (2.3-3.5); Glomerular Filtration Rate 72 ml/min (=/>90); Glucose Level 114 mg/dL (74-106); Lipase 30 U/L (13-75); Magnesium 2.3 mg/dL (1.6-2.4); NT PRO-BNP 38 pg/mL (<125); Potassium 3.9 mEq/L (3.5-5.1); Protein, Total 7.1 g/dL (6.4-8.2); Sodium Level 137 mEq/L (136-145)
[2023-08-09 16:46] LABS: Bilirubin Direct < 0.1 mg/dL (0-0.2); Bilirubin Indirect, Calculated ND mg/dL (0.2-0.8)
--- NOTE | 2023-08-09 17:03 | ER ---
Nurse's Notes [facility] Name: Garret Castro Age: 68 yrs Sex: Male : 1955 Arrival Date: 08/09/2023 Time: 15:36 Bed 20 Private MD: Diagnosis: Dyspnea;Chest pain, unspecified Presentation: 08/08 15:46 Chief complaint: Patient states: he has been having chest tightness for a few hours. ap3 patient reports that he was recently discharged from the hospital last week and hasn't really felt right since. patient denies any nausea or vomiting. Coronavirus screen: At this time, the client does not indicate any symptoms associated with coronavirus-19. Ebola Screen: No symptoms or risks identified at this time. Initial Sepsis Screen: Does the patient meet any 2 criteria? No. Patient's initial sepsis screen is negative. Does the patient have a suspected source of infection? No. Patient's initial sepsis screen is negative. Risk Assessment: Do you want to hurt yourself or someone else? Patient reports no desire to harm self or others. Onset of symptoms is unknown. 15:46 Method Of Arrival: Ambulatory ap3 15:51 Acuity: JOSH 2 ap3 Triage Assessment: 15:49 General: Appears in no apparent distress. Behavior is calm, cooperative, appropriate ap3 for age. Pain: Complains of pain in chest Pain currently is 0 out of 10 on a pain scale. Quality of pain is described as tightness. Neuro: Level of Consciousness is awake, alert, obeys commands, Cardiovascular: Patient's skin is warm and dry. Respiratory: Airway is patent Respiratory effort is even, unlabored, Respiratory pattern is regular, symmetrical. Historical: - Allergies: 15:48 No Known Allergies; ap3 - PMHx: 15:48 Anxiety; depressive disorder; Hypercholesterolemia; Hypertensive disorder; Atrial ap3 fibrillation; - Immunization history:: Client reports receiving the 2nd dose of the Covid vaccine, Pneumococcal vaccine is up to date, Flu vaccine is up to date. - Infectious Disease History:: Denies. - Social history:: Smoking status: Patient denies any tobacco usage or history of. - Family history:: not pertinent. Screenin:50 [facility] ED Fall Risk Assessment (Adult) History of falling in the last 3 months, ap3 including since admission No falls in past 3 months (0 pts) Confusion or Disorientation No (0 pts) Intoxicated or Sedated No (0 pts) Impaired Gait No (0 pts) Mobility Assist Device Used No (0 pt) Altered Elimination No (0 pt) Score/Fall Risk Level 0 - 2 = Low Risk Oriented to surroundings, Maintained a safe environment, Educated pt \T\ family on fall prevention, incl call for assistance when getting out of bed, Assessed \T\ reinforced patient's understanding of fall precautions, Provided non-skid footwear, Hourly rounding (assess needs \T\ fall precautionary measures) done, Used ambulatory aids as needed (educated on \T\ assisted with), Used gait belt as appropriate. Abuse screen: Denies threats or abuse. Nutritional screening: No deficits noted. Tuberculosis screening: No symptoms or risk factors identified. Assessment: 15:41 General: Appears in no apparent distress. uncomfortable, Behavior is calm, cooperative. rs5 Pain: Denies pain. Pain: Pain began. Neuro: Level of Consciousness is awake, alert, obeys commands, Oriented to person, place, time, situation. Cardiovascular: Reports chest tightness started this morning Patient's skin is warm and dry. . Rhythm is regular. 15:41 Respiratory: Airway is patent Respiratory effort is even, unlabored, Respiratory rs5 pattern is regular, symmetrical. GI: Abdomen is round non-distended, Abd is soft and non tender X 4 quads. : No signs and/or symptoms were reported regarding the genitourinary system. EENT: No signs and/or symptoms were reported regarding the EENT system. Derm: Skin is intact, Skin is pink, warm \T\ dry. Musculoskeletal: Range of motion: intact in all extremities. 16:48 Reassessment: Patient and/or family updated on plan of care and expected duration. Pain rs5 level reassessed. Patient is alert, oriented x 3, equal unlabored respirations, skin warm/dry/pink. 17:55 Reassessment: No changes from previously documented assessment. rs5 18:56 Cardiovascular: Denies chest pain, Rhythm is regular. rs5 19:25 Reassessment: ASSUMED CARE OF PT. PT SITTING IN BED WATCHING TV. NO PAIN OR DISTRESS jj7 NOTED. PT ADMITTED AND WILL BE GOING TO THE UNIT SHORTLY. PLAN OF CARE EXPLAINED TO PT AND FAMILY. PT REFUSED TO PUT ON A GOWN. VS STABLE. Vital Signs: 15:46 BP 125 / 73; Pulse 88; Resp 19; Pulse Ox 99% on R/A; Weight 90.72 kg; Height 5 ft. 10 ap3 in. ; Pain 0/10; 19:31 BP 128 / 81; Pulse 69; Resp 17; Temp 98.7; Pulse Ox 99% ; jj7 15:46 Body Mass Index 28.70 (90.72 kg, 177.8 cm) ap3 15:46 Pain Scale: Adult ap3 ED Course: 15:39 Patient arrived in ED. mg5 15:40 Patient has correct armband on for positive identification. Placed in gown. Bed in low rs5 position. Call light in reach. Side rails up X2. 15:40 Client placed on continuous cardiac and pulse oximetry monitoring. NIBP monitoring rs5 applied. tour bus driver on. Pulse ox on. NIBP on. 15:41 No provider procedures requiring assistance completed. rs5 15:44 Inserted saline lock: 20 gauge in right antecubital area, using aseptic technique. rs5 Blood collected. 15:45 Santhosh Gray, [place] is Primary Nurse. rs5 15:48 Reagan Ojeda MD is Attending Physician. mary 15:48 Triage completed. ap3 15:50 Arm band placed on right wrist. ap3 15:50 O2 via room air. ap3 16:37 XRAY Chest (1 view) In Process Unspecified. EDMS 17:02 Miguel Pena is Hospitalizing Provider. mary 17:36 CT Chest For PE Angio In Process Unspecified. EDMS 19:25 Provided Education on: ADMISSION PROCESS. jj7 19:35 Patient admitted, IV remains in place. jj7 Administered Medications: 15:55 Drug: NS 0.9% IV 500 ml IV at bolus once Route: IV; Rate: bolus; Site: right rs5 antecubital; 16:45 Follow up: Response: No adverse reaction; IV Status: Completed infusion rs5 15:55 Drug: NS 0.9% IV 1000 ml IV at 125 ml/hr continuous Route: IV; Rate: 125 ml/hr; Site: rs5 right antecubital; 16:10 Follow up: Response: No adverse reaction rs5 19:00 Follow up: IV Status: Completed infusion jj7 15:55 Not Given (Duplicate Order): aspirinchewable tablet 81 mg PO once [facility] 16:19 Drug: Aspirin PO Chewable Tablet 324 mg PO once; 81 mg tablets x 4 Route: PO; rs5 16:49 Follow up: Response: No adverse reaction rs5 17:28 Drug: Enoxaparin Sub-Q 1 mg/kg Sub-Q once Route: Sub-Q; Site: left lower abdomen; rs5 19:25 Follow up: Response: No adverse reaction jj7 17:28 Drug: Famotidine IVP 20 mg IVP once; dilute with 10 mL 0.9% NaCl; give over 2 minutes rs5 Route: IVP; Site: left antecubital; 19:25 Follow up: Response: Marked relief of symptoms jj7 Medication: 17:05 VIS not applicable for this client. rs5 Outcome: 17:03 Decision to Hospitalize by Provider. [facility] 19:35 Admitted to Med/surg accompanied by tech, via wheelchair, room 208, Report called to [facility] SBAR FAXED TO 2ND FLOOR 19:35 Condition: improved 19:37 Patient left the ED. cp4 Signatures: Dispatcher [employer] EDMS Reagan Ojeda MD MD cha Prokisch, Amanda RN RN ap3 George Toledo RN RN jjSanthosh Hinton RN RN Victoria Bah Christina cp4 Corrections: (The following items were deleted from the chart) 15:51 15:46 Acuity: JOSH 3 ap3 ap3
--- NOTE | 2023-08-09 17:03 | EDPHYS ---
Physician Documentation [facility] Name: Garret Castro Age: 68 yrs Sex: Male : 1955 Arrival Date: 08/09/2023 Time: 15:36 Bed 20 Private MD: ED Physician Reagan Ojeda HPI: 08/08 16:03 This 68 yrs old Male presents to ER via Ambulatory with complaints of Chest mary Tightness, Doesn't Feel Right. 16:03 The patient or guardian reports chest pain that is located primarily in the substernal mary area. Onset: just prior to arrival. The pain does not radiate. Associated signs and symptoms: The patient has no apparent associated signs or symptoms. The chest pain is described as squeezing. Duration: The patient or guardian reports multiple episodes, with no pattern. Severity of pain: At its worst the pain was mild in the emergency department the pain is unchanged. The patient has not experienced similar symptoms in the past. Historical: - Allergies: 15:48 No Known Allergies; ap3 - PMHx: 15:48 Anxiety; depressive disorder; Hypercholesterolemia; Hypertensive disorder; Atrial ap3 fibrillation; - Immunization history:: Client reports receiving the 2nd dose of the Covid vaccine, Pneumococcal vaccine is up to date, Flu vaccine is up to date. - Infectious Disease History:: Denies. - Social history:: Smoking status: Patient denies any tobacco usage or history of. - Family history:: not pertinent. ROS: 16:03 Constitutional: Negative for fever, chills, and weight loss, Eyes: Negative for injury, mary pain, redness, and discharge, ENT: Negative for injury, pain, and discharge, Neck: Negative for injury, pain, and swelling, Abdomen/GI: Negative for abdominal pain, nausea, vomiting, diarrhea, and constipation, Back: Negative for injury and pain, : Negative for injury, bleeding, discharge, and swelling, MS/Extremity: Negative for injury and deformity, Skin: Negative for injury, rash, and discoloration, Neuro: Negative for headache, weakness, numbness, tingling, and seizure, Psych: Negative for depression, anxiety, suicide ideation, homicidal ideation, and hallucinations, Allergy/Immunology: Negative for hives, rash, and allergies, Endocrine: Negative for neck swelling, polydipsia, polyuria, polyphagia, and marked weight changes, Hematologic/Lymphatic: Negative for swollen nodes, abnormal bleeding, and unusual bruising, 16:03 Constitutional: Negative for body aches, chills, fatigue, fever, malaise, poor PO intake, weight loss, 16:03 Cardiovascular: Positive for chest pain, of the chest, 16:03 Respiratory: Positive for shortness of breath, at rest. 16:03 MS/extremity: Negative for acute changes, Exam: 16:08 Constitutional: This is a well developed, well nourished patient who is awake, alert, mary and in no acute distress. Head/Face: Normocephalic, atraumatic. Eyes: Pupils equal round and reactive to light, extra-ocular motions intact. Lids and lashes normal. Conjunctiva and sclera are non-icteric and not injected. Cornea within normal limits. Periorbital areas with no swelling, redness, or edema. ENT: Nares patent. No nasal discharge, no septal abnormalities noted. Tympanic membranes are normal and external auditory canals are clear. Oropharynx with no redness, swelling, or masses, exudates, or evidence of obstruction, uvula midline. Mucous membranes moist. Neck: Trachea midline, no thyromegaly or masses palpated, and no cervical lymphadenopathy. Supple, full range of motion without nuchal rigidity, or vertebral point tenderness. No Meningismus. Chest/axilla: Normal chest wall appearance and motion. Nontender with no deformity. No lesions are appreciated. Cardiovascular: Regular rate and rhythm with a normal S1 and S2. No gallops, murmurs, or rubs. Normal PMI, no JVD. No pulse deficits. Respiratory: Lungs have equal breath sounds bilaterally, clear to auscultation and percussion. No rales, rhonchi or wheezes noted. No increased work of breathing, no retractions or nasal flaring. Abdomen/GI: Soft, non-tender, with normal bowel sounds. No distension or tympany. No guarding or rebound. No evidence of tenderness throughout. Back: No spinal tenderness. No costovertebral tenderness. Full range of motion. Male : Normal genitalia with no discharge or lesions. Skin: Warm, dry with normal turgor. Normal color with no rashes, no lesions, and no evidence of cellulitis. MS/ Extremity: Pulses equal, no cyanosis. Neurovascular intact. Full, normal range of motion. Neuro: Awake and alert, GCS 15, oriented to person, place, time, and situation. Cranial nerves II-XII grossly intact. Motor strength 5/5 in all extremities. Sensory grossly intact. Cerebellar exam normal. Normal gait. Psych: Awake, alert, with orientation to person, place and time. Behavior, mood, and affect are within normal limits. 16:08 ECG was reviewed by the Attending Physician. Vital Signs: 15:46 BP 125 / 73; Pulse 88; Resp 19; Pulse Ox 99% on R/A; Weight 90.72 kg; Height 5 ft. 10 ap3 in. ; Pain 0/10; 19:31 BP 128 / 81; Pulse 69; Resp 17; Temp 98.7; Pulse Ox 99% ; jj7 15:46 Body Mass Index 28.70 (90.72 kg, 177.8 cm) ap3 15:46 Pain Scale: Adult ap3 MDM: 15:48 Patient medically screened. mary 16:09 Differential diagnosis: abnormal EKG, acute myocardial infarction, acute pericarditis, mary anxiety, coronary artery disease chest wall pain, Cholelithiasis costochondritis, gastroesophageal reflux disease (GERD), hiatal hernia, pancreatitis, peptic ulcer disease, pericarditis, pleurisy, pneumonia, pneumothorax, pulmonary embolus, stable angina, thoracic aortic disection, unstable angina. HEART Score: History: Moderately Suspicious (1), ECG: Normal (0), Age: > or = 65 years (2), Risk Factors: > or = 3 Risk factors for atherosclerotic disease (2), [Hypercholesterolemia] [Hypertension] [+ Family HX] [Obesity] Troponin: < or = 1 x Normal Limit (0). The patient was given aspirin in the Emergency Department. SUSIE Risk Score: 1 - patient's age is greater or equal to 65 years, 1 - Three or more CAD risk factors, [Family Hx], [HTN], [Elevated Cholesterol], 1- Known CAD, 1 - ASA use in past 7 days, TOTAL SCORE = 4. Data reviewed: vital signs, nurses notes, lab test result(s), EKG, radiologic studies, plain films. Consideration of Admission/Observation Patient was admitted/placed on observation. Escalation of care including admission/observation considered. I considered the following discharge prescriptions or medication management in the emergency department Medications were administered in the Emergency Department. See MAR. Independent interpretation of the following test(s) in the Emergency Department EKG: See my EKG interpretation above. Test considered but Not performed: Ultrasound no 2 d echo. Historians other than the Patient: Spouse/Significant Other: well informed. Care significantly affected by the following chronic conditions: Hypertension, Obesity, anxiety , depression, high cholesterol, atrial fib. Counseling: I had a detailed discussion with the patient and/or guardian regarding the historical points, exam findings, and any diagnostic results supporting the discharge/admit diagnosis, lab results, radiology results, the need for further work-up and treatment in the hospital. 08/08 15:49 Order name: Basic Metabolic Panel; Complete Time: 16:57 [facility] 08/08 15:49 Order name: CBC with Diff; Complete Time: 16:44 mary 08/08 15:49 Order name: LFT's; Complete Time: 16:57 mray 08/08 15:49 Order name: Magnesium; Complete Time: 16:57 mary 08/08 15:49 Order name: NT PRO-BNP; Complete Time: 16:57 08/08 15:49 Order name: PT-INR; Complete Time: 16:44 08/08 15:49 Order name: Troponin HS; Complete Time: 16:57 mary 08/08 15:49 Order name: Lipase; Complete Time: 16:57 mary 08/08 15:49 Order name: Urinalysis w/ reflexes 08/08 15:55 Order name: D-Dimer; Complete Time: 16:44 mary 08/08 18:04 Order name: Troponin High Sensitivity [facility] 08/08 18:04 Order name: Troponin High Sensitivity [facility] 08/08 18:04 Order name: Troponin High Sensitivity [facility] 08/08 18:12 Order name: Urine Culture [facility] 08/08 15:49 Order name: XRAY Chest (1 view); Complete Time: 16:44 mary 08/08 16:45 Order name: CT Chest For PE Angio [facility] 08/08 15:49 Order name: Cardiac monitoring; Complete Time: 16:22 08/08 15:49 Order name: EKG - Nurse/Tech; Complete Time: 16:22 mary 08/08 15:49 Order name: IV Saline Lock; Complete Time: 16:22 08/08 15:49 Order name: Labs collected and sent; Complete Time: 16:22 mary 08/08 15:49 Order name: O2 Per Protocol; Complete Time: 16 mary 08/08 15:49 Order name: O2 Sat Monitoring; Complete Time: 16: mary EC:08 Rate is 87 beats/min. Rhythm is regular. QRS [place] is Normal. NM interval is normal. QRS mary interval is normal. QT interval is normal. No Q waves. T waves are Normal. No ST changes noted. Clinical impression: Normal ECG and No evidence of ischemia. Interpreted by me. Reviewed by me. Administered Medications: 15:55 Drug: NS 0.9% IV 500 ml IV at bolus once Route: IV; Rate: bolus; Site: right rs5 antecubital; 16:45 Follow up: Response: No adverse reaction; IV Status: Completed infusion rs5 15:55 Drug: NS 0.9% IV 1000 ml IV at 125 ml/hr continuous Route: IV; Rate: 125 ml/hr; Site: rs5 right antecubital; 16:10 Follow up: Response: No adverse reaction rs5 19:00 Follow up: IV Status: Completed infusion jj7 15:55 Not Given (Duplicate Order): aspirinchewable tablet 81 mg PO once mary 16:19 Drug: Aspirin PO Chewable Tablet 324 mg PO once; 81 mg tablets x 4 Route: PO; rs5 16:49 Follow up: Response: No adverse reaction rs5 17:28 Drug: Enoxaparin Sub-Q 1 mg/kg Sub-Q once Route: Sub-Q; Site: left lower abdomen; rs5 19:25 Follow up: Response: No adverse reaction jj7 17:28 Drug: Famotidine IVP 20 mg IVP once; dilute with 10 mL 0.9% NaCl; give over 2 minutes rs5 Route: IVP; Site: left antecubital; 19:25 Follow up: Response: Marked relief of symptoms jj7 Disposition Summary: 08/09/23 17:03 Hospitalization Ordered Notes: Hospitalization Status: Observation mary Provider: Miguel Pena cha Location: Telemetry/MedSurg (observation) mary Condition: Stable mary Problem: new mary Symptoms: have improved mary Bed/Room Type: Standard [facility] Room Assignment: 208(08/09/23 18:24) bd Diagnosis - Dyspnea mary - Chest pain, unspecified mary Forms: - Medication Reconciliation Form mary - SBAR form mary - Leadership Thank You Letter mary Signatures: Dispatcher [employer] EDMS RickSmiley Reagan Lion MD MD cha Prokisch, Amanda RN RN ap3 Santhosh Gray, RN RN rs5 George Toledo RN jj7 Corrections: (The following items were deleted from the chart) 15:50 15:49 BASIC METABOLIC PANEL+C.LAB.BRZ ordered. EDMS EDMS 15:50 15:49 CBC+H.LAB.BRZ ordered. EDMS EDMS 15:50 15:49 HEPATIC FUNCTION+C.LAB.BRZ ordered. EDMS EDMS 15:50 15:49 MAGNESIUM+C.LAB.BRZ ordered. EDMS EDMS 15:50 15:49 PROBNP+C.LAB.BRZ ordered. EDMS EDMS 15:50 15:49 PROTIME (+INR)+COAG.LAB.BRZ ordered. EDMS EDMS 15:50 15:49 Troponin High Sensitivity+C.LAB.BRZ ordered. EDMS EDMS 15:50 15:49 LIPASE+C.LAB.BRZ ordered. EDMS EDMS 15:50 15:49 Urinalysis+U.LAB.BRZ ordered. EDMS EDMS 15:55 15:55 D-DIMER+COAG.LAB.BRZ ordered. EDMS EDMS 18:24 17:03 [facility]
[2023-08-09] MEDS ORDERED: ENOXAPARIN 100 MG/ML SYR SQ ONE (17:30)
[2023-08-09] MEDS ORDERED: FAMOTIDINE 20 MG/2 ML VIAL IV ONE (17:30)
--- NOTE | 2023-08-09 17:46 | RAD REPORT ---
EXAM DESCRIPTION: CT - Chest For Pe Angio - 08/09/2023 5:34 pm CLINICAL HISTORY: Chest pain. CHEST PAIN COMPARISON: No comparisons TECHNIQUE: CT angiogram of the pulmonary arteries was performed with MIP. All CT scans are performed using dose optimization technique as appropriate and may include automated exposure control or mA/KV adjustment according to patient size. FINDINGS: No evidence of pulmonary thromboembolism. No acute aortic finding demonstrated. Mild subsegmental atelectasis is present in the lung bases. The lungs are otherwise clear. 3.7 cm flu id attenuation structure pre-vascular space may be a pericardial cyst. No significant pericardial or pleural fluid. No concerning bony finding. IMPRESSION: No evidence of pulmonary thromboembolism. Mild subsegmental atelectasis is present in both lung bases.
[2023-08-09 18:07] LABS: Specific Gravity 1.021 (1.005-1.030); Sqamous Epithelial <5 /HPF (None Seen); Urine Bacteria None Seen /HPF (<20); Urine Bilirubin NEGATIVE (Negative); Urine Blood Negative (Negative); Urine Clarity Clear (Clear); Urine Color Light-Yellow (Yellow); Urine Culture Reflex Order REFLEXED; Urine Glucose NEGATIVE (Negative); Urine Ketones NEGATIVE (Negative); Urine Microscopic Reflex YN ORDER UMIC; Urine Mucus Slight /HPF (None Seen); Urine Nitrite NEGATIVE (Negative); Urine Protein NEGATIVE (Negative); Urine Urobilinogen Normal (Normal); Urine WBC 20-50 /HPF (<5); Urine pH 6.5 (5.0-7.0)
--- NOTE | 2023-08-09 18:12 | P.HP ---
Certification for Inpatient Patient admitted to: Observation With expected LOS: <2 Midnights Practitioner: I am a practitioner with admitting privileges, knowledge of patient current condition, hospital course, and medical plan of care. Services: Services provided to patient in accordance with Admission requirements found in Title 42 Section 412.3 of the Code of Federal Regulations Patient History Date of Service: 08/09/23 History of Present Illness: Patient is a 68-year-old male with a past medical history of atrial fibrillation, hypertension, hyperlipidemia, depression/anxiety who presented to the ED with chest tightness. He reports the chest tightness is mild rated 2/10 which began this morning. Patient also reports burning some wood yesterday which he speculates may have contributed to his symptoms developing this morning. Of note he was recently admitted for pneumonia on 07/26 and discharged home on 07/28 on a course of antibiotics. He reports completing the antibiotics. CBC unremarkable. EKG normal sinus rhythm no sign of ST elevation. Troponin negative. Chest x-ray reporting "mild CHF." CTA chest without evidence of pulmonary thromboembolism, mild subsegmental atelectasis is present in both lung bases. ED provider wishes to admit for observation for further monitoring and workup of chest pain/tightness. Allergies No Known Allergies Allergy (Unverified 07/27/23 21:54) Home medications list reviewed: Yes Home Medications: Buspirone HCl [Buspar] 10 mg PO BID 07/27/23 Escitalopram [Lexapro*] 10 mg PO DAILY 07/27/23 Lamotrigine [Lamictal] 100 mg PO BID 07/27/23 Metoprolol Tartrate 25 mg PO DAILY 07/27/23 Simvastatin 20 mg PO BEDTIME 07/27/23 Azithromycin [Zithromax] 500 mg PO DAILY #7 tab 07/29/23 Cefuroxime Axetil [Cefuroxime] 500 mg PO BID #20 tab 07/29/23 Guaif/Dm [Robitussin Dm*] 5 ml PO Q6H PRN #1 bottle 07/29/23 Guaifenesin [Mucinex] 600 mg PO BID #20 tab 07/29/23 - Past Medical/Surgical History Diabetic: No -: Atrial fibrillation -: Hypertension -: Hyperlipidemia -: Depression/anxiety -: Heart ablation 2016 Review of Systems 10-point ROS is otherwise unremarkable Respiratory: Cough (Intermittent) Cardiovascular: Other (Chest tightness) Physical Examination - Physical Exam General: Alert, In no apparent distress, Oriented x3 HEENT: Atraumatic, Normocephalic Respiratory: Clear to auscultation bilaterally, Normal air movement Cardiovascular: No edema, Normal pulses, Regular rate/rhythm Gastrointestinal: Normal bowel sounds, Soft and benign, Non-distended Integumentary: No rashes, No breakdown Neurological: Normal speech, Normal strength at 5/5 x4 extr, Normal tone - Studies Laboratory Data (last 24 hrs) 08/09/23 08/09/23 08/09/23 16:00 16:00 16:00 WBC 8.20 Hgb 13.8 Hct 40.9 Plt Count 307 PT 10.7 INR 0.97 Sodium 137 Potassium 3.9 BUN 16 Creatinine 1.10 Glucose 114 H Magnesium 2.3 Total Bilirubin 0.3 AST 21 ALT 26 Alkaline Phosphatase 61 Lipase 30 Assessment and Plan - Plan Problem list Chest pain/tightness Hypertension Hyperlipidemia Depression/anxiety Hx Atrial fibrillation s/p ablation Chest pain/tightness -Initial troponin negative - trend serial troponins. -D-dimer within normal limits - EKG normal sinus rhythm no evidence of ST elevation -Given aspirin in ED -Telemetry monitoring -Lipid panel pending - Pt recently admitted for pneumonia on 07/26 -07/28 and completed a 7-day course of antibiotics. Since having the pneumonia he reports feeling more tired than usual. - Chest x-ray reporting "mild CHF." - CTA chest "No evidence of pulmonary thromboembolism. Mild subsegmental atelectasis is present in both lung bases." Hypertension Hyperlipidemia Hx Atrial fibrillation s/p ablation 2016 -Continue home medications once verified Depression Anxiety -Continue home meds once verified Full code - Advance Directives Does patient have a Living Will: No Does patient have a Durable POA for Healthcare: No
[2023-08-09 21:13] VITALS: BMI 29.4
[2023-08-10 08:10] LABS: Absolute Basophils 0.1 K/uL (0-0.5); Absolute Eosinophils 0.2 K/uL (0-0.5); Absolute Monocytes 0.5 K/uL (0.1-1.3); Absolute Neutrophil 3.8 K/uL (1.8-8.0); Basophils % 1.3 % (0-1.3); Eosinophils % 3.4 % (0-4.4); Hematocrit 40.2 % (39.6-49.0); Hemoglobin 13.5 g/dL (13.6-17.9); Lymphocytes % 17.6 % (15.3-44.8); MCH 30.2 pg (27.0-35.0); MCHC 33.7 g/dL (32.0-36.0); MCV 89.5 fL (80-100); MPV 8.8 fL (7.6-11.3); Monocytes % 9.4 % (3.3-12.3); Neutrophils % 68.3 % (41.7-73.7); Platelets 284 thou/uL (152-406); RBC Red Blood Cell Count 4.49 M/uL (4.33-5.43); Red Cell Distribution Width 15.6 % (12.1-15.2)
[2023-08-10 08:24] LABS: Albumin 3.1 g/dL (3.4-5.0); Albumin/Globulin Ratio 0.8 (1.1-1.8); Anion Gap 6.2 mEq/L (5.0-15.0); Bilirubin Total 0.5 mg/dL (0.2-1.0); Globulin 3.7 g/dL (2.3-3.5); Potassium 4.2 mEq/L (3.5-5.1); Protein, Total 6.8 g/dL (6.4-8.2)
--- NOTE | 2023-08-10 08:32 | P.DS ---
Admission Date: 08/09/23 Discharge Date: 08/10/23 Brief History of Present Illness: Patient is a 68-year-old male with a past medical history of atrial fibrillation, hypertension, hyperlipidemia, depression/anxiety who presented to the ED with chest tightness. He reports the chest tightness is mild rated 2/10 which began this morning. Patient also reports burning some wood yesterday which he speculates may have contributed to his symptoms developing this morning. Of note he was recently admitted for pneumonia on 07/26 and discharged home on 07/28 on a course of antibiotics. He reports completing the antibiotics. CBC unremarkable. EKG normal sinus rhythm no sign of ST elevation. Troponin negative. Chest x-ray reporting "mild CHF." CTA chest without evidence of pulmonary thromboembolism, mild subsegmental atelectasis is present in both lung bases. ED provider wishes to admit for observation for further monitoring and workup of chest pain/tightness. Hospital Course: Problem list Chest pain/tightness Hypertension Hyperlipidemia Depression/anxiety Hx Atrial fibrillation s/p ablation Presented with chest tightness rated 2 out of 10 and cough. Chest pain workup initiated. EKG normal sinus rhythm, troponins negative. Chest x-ray reporting mild CHF pattern. CTA chest without evidence of pulmonary embolism. Patient was noted to be diagnosed with pneumonia on 07/26 for which he completed 7 days of antibiotics, still with some chest congestion. Vital signs stable, labs stable. Patient deemed stable for discharge. New prescriptions -Guaifenesin 600 mg p.o. twice daily -Robitussin DM 5 mL every 6 hours as needed for cough Continue taking your other home medications as previously prescribed. Follow-ups -Follow-up with your primary care physician within 1 week. Please call office to schedule appointment. Physical exam General: Alert, In no apparent distress, Oriented x3 HEENT: Atraumatic, Normocephalic Respiratory: Clear to auscultation bilaterally, Normal air movement Cardiovascular: No edema, Normal pulses, Regular rate/rhythm Gastrointestinal: Normal bowel sounds, Soft and benign, Non-distended Integumentary: No rashes, No breakdown Neurological: Normal speech, Normal strength at 5/5 x4 extr, Normal tone <Susana Salcedo - Last Filed: 08/10/23 11:39> Admission Date: 08/09/23 Discharge Date: 08/10/23 Hospital Course: Patient seen and evaluated. Plan of care discussed with Ms. Salcedo. Troponin x 3 negative. ACS ruled out. Patient recently diagnosed with pneumonia and just completed antibiotics He relates his symptoms to congestion and coughing. Vitals are stable, patient is deemed clinically stable for discharge. <tacosevelyn - Last Filed: 08/11/23 06:58> Disposition: ROUTINE DISCHARGE Discharge Condition: GOOD Vital Signs/Physical Exam: Temp Pulse Resp BP Pulse Ox 97.4 F 74 16 103/57 L 98 08/10/23 04:00 08/10/23 04:00 08/10/23 04:00 08/10/23 04:00 08/10/23 04:00 Laboratory Data at Discharge: WBC 5.60 thou/uL (4.3-10.9) 08/10/23 07:43 Hgb 13.5 g/dL (13.6-17.9) L 08/10/23 07:43 Hct 40.2 % (39.6-49.0) 08/10/23 07:43 Plt Count 284 thou/uL (152-406) 08/10/23 07:43 PT 10.7 SECONDS (9.5-12.5) 08/09/23 16:00 INR 0.97 08/09/23 16:00 Sodium 139 mEq/L (136-145) 08/10/23 07:43 Potassium 4.2 mEq/L (3.5-5.1) 08/10/23 07:43 BUN 12 mg/dL (7-18) 08/10/23 07:43 Creatinine 0.95 mg/dL (0.70-1.30) 08/10/23 07:43 Glucose 98 mg/dL (74-106) 08/10/23 07:43 Magnesium 2.3 mg/dL (1.6-2.4) 08/09/23 16:00 Total Bilirubin 0.5 mg/dL (0.2-1.0) 08/10/23 07:43 AST 21 U/L (15-37) 08/10/23 07:43 ALT 23 U/L (16-61) 08/10/23 07:43 Alkaline Phosphatase 58 U/L (45-117) 08/10/23 07:43 Lipase 30 U/L (13-75) 08/09/23 16:00 <Susana Salcedo - Last Filed: 08/10/23 11:39> Vital Signs/Physical Exam: Temp Pulse Resp BP Pulse Ox 98.2 F 76 19 134/77 97 08/10/23 08:00 08/10/23 08:00 08/10/23 08:00 08/10/23 08:00 08/10/23 08:00 Laboratory Data at Discharge: WBC 5.60 thou/uL (4.3-10.9) 08/10/23 07:43 Hgb 13.5 g/dL (13.6-17.9) L 08/10/23 07:43 Hct 40.2 % (39.6-49.0) 08/10/23 07:43 Plt Count 284 thou/uL (152-406) 08/10/23 07:43 PT 10.7 SECONDS (9.5-12.5) 08/09/23 16:00 INR 0.97 08/09/23 16:00 Sodium 139 mEq/L (136-145) 08/10/23 07:43 Potassium 4.2 mEq/L (3.5-5.1) 08/10/23 07:43 BUN 12 mg/dL (7-18) 08/10/23 07:43 Creatinine 0.95 mg/dL (0.70-1.30) 08/10/23 07:43 Glucose 98 mg/dL (74-106) 08/10/23 07:43 Magnesium 2.3 mg/dL (1.6-2.4) 08/09/23 16:00 Total Bilirubin 0.5 mg/dL (0.2-1.0) 08/10/23 07:43 AST 21 U/L (15-37) 08/10/23 07:43 ALT 23 U/L (16-61) 08/10/23 07:43 Alkaline Phosphatase 58 U/L (45-117) 08/10/23 07:43 Lipase 30 U/L (13-75) 08/09/23 16:00 <evelyn balderrama - Last Filed: 08/11/23 06:58> Diet: AHA Activity: Ad margo <Susana Salcedo - Last Filed: 08/10/23 11:39> <evelyn balderrama - Last Filed: 08/11/23 06:58> Home Medications: Buspirone HCl [Buspar] 10 mg PO BID 07/27/23 Escitalopram [Lexapro*] 20 mg PO DAILY 07/27/23 Lamotrigine [Lamictal] 200 mg PO DAILY 07/27/23 Simvastatin 20 mg PO BEDTIME 07/27/23 Levocetirizine Dihydrochloride [Xyzal] 5 mg PO DAILY 08/09/23 Metoprolol Succinate [Toprol Xl] 25 mg PO DAILY 08/09/23 Guaif/Dm [Robitussin Dm*] 5 ml PO Q6H PRN #237 ml 08/10/23 Guaifenesin [Mucinex] 600 mg PO BID #20 tab 08/10/23 New Medications: Guaifenesin [Mucinex] 600 mg PO BID #20 tab Guaif/Dm [Robitussin Dm*] 5 ml PO Q6H PRN #237 ml PRN Reason: Cough Physician Discharge Instructions: Presented with chest tightness rated 2 out of 10 and cough. Chest pain workup initiated. EKG normal sinus rhythm, troponins negative. Chest x-ray reporting mild CHF pattern. CTA chest without evidence of pulmonary embolism. Patient was noted to be diagnosed with pneumonia on 07/26 for which he completed 7 days of antibiotics, still with some chest congestion. Vital signs stable, labs stable. Patient deemed stable for discharge. New prescriptions -Guaifenesin 600 mg p.o. twice daily -Robitussin DM 5 mL every 6 hours as needed for cough Continue taking your other home medications as previously prescribed. Follow-ups -Follow-up with your primary care physician within 1 week. Please call office to schedule appointment. Followup: Geoffrey Mooney DO [Primary Care Provider] - 1-2 Weeks
[2023-08-10 09:44] VITALS: O2SAT 97
[2023-08-10 10:22] VITALS: BP 134/77; TEMP 98.2
--- NOTE | 2023-08-10 13:09 | EKG ---
Test Date: 2023-08-09 Test Time: 15:55:23 Unit Reactor Operator: JOSESITO MEASUREMENT RESULTS: Intervals: Rate: 87 CO: 146 QRSD: 76 QT: 348 QTc: 418 [place]: P: 66 CO: 146 QRS: 55 T: 44 INTERPRETIVE STATEMENTS: Normal sinus rhythm Normal ECG Compared to ECG 07/27/2023 19:10:34 Sinus tachycardia no longer present Electronically Signed On 08-10-23 13:06:04 CDT by Miquel Mabry
== END 2023-08-10 11:25 | disposition home or self-care (01) ==
LOC: ER 15:36 → ERHOLD 17:57 → 2ND 18:42
PROVIDERS: ADMIT Internal Medicine; ATTEND Internal Medicine
DX: R07.9 Chest pain, unspecified (principal); J98.11 Atelectasis; I10 Essential (primary) hypertension; E78.5 Hyperlipidemia, unspecified; F41.9 Anxiety disorder, unspecified; F32.A Depression, unspecified; R05.9 Cough, unspecified
CPT/HCPCS: 96361; 93005; 87088; 85025 ×2; 81001; 87086; 80048; 36415; 83735; 85610; 85379; 80076; 84484 ×3; 83690; 80053; 83880; 71275; 71045; 96372; 96374; 99285; Q9967; J1650; J7040; J7030; G0378 ×3

== ENCOUNTER 2024-07-25 12:18 | Emergency (ER) | payer OTHER ==
--- NOTE | 2024-07-25 14:29 | RAD REPORT ---
Procedure: Chest Single View HISTORY: Syncope COMPARISON: April 2024 FINDINGS: The lungs appear clear of acute infiltrate. Lungs are mildly hyperaerated. No significant pleural effusion noted. The heart is borderline enlarged. IMPRESSION: No acute abnormality is displayed.
[2024-07-25 15:15] LABS: Absolute Eosinophils 0.1 K/uL (0-0.5); Absolute Lymphocytes (CBC) 0.3 K/uL (0.7-4.9); Absolute Monocytes 0.4 K/uL (0.1-1.3); Absolute Neutrophil 3.9 K/uL (1.8-8.0); Basophils % 0.8 % (0-1.3); Hematocrit 42.6 % (39.6-49.0); Hemoglobin 14.7 g/dL (13.6-17.9); Lymphocytes % 6.7 % (15.3-44.8); MCH 30.7 pg (27.0-35.0); MCHC 34.6 g/dL (32.0-36.0); MCV 88.9 fL (80-100); Neutrophils % 80.5 % (41.7-73.7); Nucleated Red Blood Cells % 0.1 % (0-0); Platelets 170 thou/uL (152-406)
[2024-07-25] MEDS ORDERED: NA CHLORIDE 0.9% 1,000 ML ONE (15:19)
[2024-07-25 15:31] LABS: ALT/SGPT 22 U/L (16-61); AST/SGOT 31 U/L (15-37); Albumin 3.7 g/dL (3.4-5.0); Albumin/Globulin Ratio 0.9 (1.1-1.8); Alkaline Phosphatase 76 U/L (45-117); Anion Gap 6.7 mEq/L (5.0-15.0); BUN Blood Urea Nitrogen 17 mg/dL (7-18); Bicarbonate 27 mEq/L (21-32); Bilirubin Total 0.5 mg/dL (0.2-1.0); Globulin 4.2 g/dL (2.3-3.5); Glomerular Filtration Rate 74 ml/min (=/>90); Glucose Level 95 mg/dL (74-106); Potassium 3.7 mEq/L (3.5-5.1); Protein, Total 7.9 g/dL (6.4-8.2); Sodium Level 134 mEq/L (136-145)
[2024-07-25 15:32] LABS: Bilirubin Direct < 0.2 mg/dL (0-0.2); Bilirubin Indirect, Calculated 0.3 mg/dL (0.2-0.8); Troponin High Sensitivity < 3.0 pg/mL (<58.9)
--- NOTE | 2024-07-25 16:46 | EDPHYS ---
Physician Documentation [facility] Name: Garret Castro Age: 69 yrs Sex: Male : 1955 Arrival Date: 07/25/2024 Time: 12:18 Bed 3 Private MD: ED Physician Heath Damian HPI: 07/25 14:50 This 69 yrs old Male presents to ER via Ambulatory with complaints of Dizziness. rt 14:50 Patient presents to the ED with several weeks of dizziness described as near syncope. rt He has not lost consciousness.. States that he comes dizzy when he stands uphe has had several falls due to this. Denies any significant injury associated with that. He has had a lingering cough but denies difficulty breathing, chest pain. Denies other acute complaints at this time, symptoms moderate in severity, no other aggravating or alleviating factors.. Historical: - Allergies: 12:55 No Known Allergies; db - PMHx: 12:55 Anxiety; Hypercholesterolemia; depressive disorder; Hypertensive disorder; db 12:57 IRREGULAR HEART BEAT; db - PSHx: 12:55 Cardiac Ablation (en); db - Immunization history:: Adult Immunizations unknown. - Infectious Disease History:: Denies. - Social history:: Smoking status: Patient denies any tobacco usage or history of. - Family history:: not pertinent. ROS: 14:50 Constitutional: Negative for fever, chills, and weight loss, Cardiovascular: Negative rt for chest pain, palpitations, and edema, Abdomen/GI: Negative for abdominal pain, nausea, vomiting, diarrhea, and constipation, MS/Extremity: Negative for injury and deformity, Skin: Negative for injury, rash, and discoloration, 14:50 Respiratory: Positive for cough, Negative for shortness of breath, 14:50 Neuro: Positive for dizziness, weakness, Exam: 14:50 Constitutional: This is a well developed, well nourished patient who is awake, alert, rt and in no acute distress. Head/Face: Normocephalic, atraumatic. Chest/axilla: Normal chest wall appearance and motion. Nontender with no deformity. No lesions are appreciated. Cardiovascular: Regular rate and rhythm with a normal S1 and S2. No gallops, murmurs, or rubs. Normal PMI, no JVD. No pulse deficits. Respiratory: Lungs have equal breath sounds bilaterally, clear to auscultation and percussion. No rales, rhonchi or wheezes noted. No increased work of breathing, no retractions or nasal flaring. Abdomen/GI: Soft, non-tender, with normal bowel sounds. No distension or tympany. No guarding or rebound. No evidence of tenderness throughout. Skin: Warm, dry with normal turgor. Normal color with no rashes, no lesions, and no evidence of cellulitis. MS/ Extremity: Pulses equal, no cyanosis. Neurovascular intact. Full, normal range of motion. Neuro: Awake and alert, GCS 15, oriented to person, place, time, and situation. Cranial nerves II-XII grossly intact. Motor strength 5/5 in all extremities. Sensory grossly intact. Cerebellar exam normal. Normal gait. 15:00 ECG was reviewed by the Attending Physician. rt Vital Signs: 12:53 BP 121 / 68; Pulse 84; Resp 16; Temp 98.4(O); Pulse Ox 98% on R/A; Weight 88.45 kg; db Height 5 ft. 10 in. ; 16:39 BP 124 / 71; Pulse 76; Resp 16; Pulse Ox 99% ; bp 12:53 Body Mass Index 27.98 (88.45 kg, 177.8 cm) db Yessica Coma Score: 12:53 Eye Response: spontaneous(4). Motor Response: obeys commands(6). Verbal Response: db oriented(5). Total: 15. Trauma Score (Adult): 12:53 Eye Response: spontaneous(1); Verbal Response: oriented(1); Motor Response: obeys db commands(2); Systolic BP: > 89 mm Hg(4); Respiratory Rate: 10 to 29 per min(4); Foster Score: 15; Trauma Score: 12 MDM: 12:52 Medical Screening Exam initiated rt 16:03 Differential diagnosis: Syncope, dysrhythmia, intravascular volume depletion, anemia. rt Data reviewed: vital signs, nurses notes, lab test result(s), EKG, radiologic studies. Consideration of Admission/Observation Escalation of care including admission/observation considered. Symptoms improved with IV fluids, workup is benign, no indications for admission at this time, patient is stable for outpatient care.. Test considered but Not performed: CT: Patient with orthostatic near syncope, no focal neurologic deficits, do not believe that CT scan is likely to benefit the patient. Discussed this with patient, he agrees and wishes to forego unnecessary testing. Care significantly affected by the following chronic conditions: Hypertension. Counseling: I had a detailed discussion with the patient and/or guardian regarding the historical points, exam findings, and any diagnostic results supporting the discharge/admit diagnosis. Response to treatment: the patient's symptoms have markedly improved after treatment. 07/25 12:59 Order name: Basic Metabolic Panel; Complete Time: 15:38 rt 07/25 12:59 Order name: CBC with Diff; Complete Time: 15:38 rt 07/25 12:59 Order name: LFT's; Complete Time: 15:38 rt 07/25 12:59 Order name: Magnesium; Complete Time: 15:38 rt 07/25 12:59 Order name: Troponin HS; Complete Time: 15:38 rt 07/25 12:59 Order name: XRAY Chest (1 view); Complete Time: 14:35 rt 07/25 12:59 Order name: Cardiac monitoring; Complete Time: 15:03 rt 07/25 12:59 Order name: EKG - Nurse/Tech; Complete Time: 15:03 rt 07/25 12:59 Order name: IV Saline Lock; Complete Time: 15:03 rt 07/25 12:59 Order name: Labs collected and sent; Complete Time: 15:03 rt 07/25 12:59 Order name: O2 Per Protocol; Complete Time: 15:03 rt 07/25 12:59 Order name: O2 Sat Monitoring; Complete Time: 15:03 rt EC:00 Rate is 80 beats/min. Rhythm is regular, Normal Sinus Rhythm with No ectopy. QRS Darwin rt is Normal. OR interval is normal. QRS interval is normal. QT interval is normal. No Q waves. T waves are Normal. No ST changes noted. Interpreted by me. Administered Medications: 15:00 Drug: NS 0.9% IV 1000 ml IV at 1 bolus Per protocol; to be given as a bolus over 60 bp minutes Route: IV; Rate: 1 bolus; Site: right antecubital; 17:03 Follow up: IV Status: Completed infusion bp Disposition Summary: 07/25/24 16:45 Discharge Ordered Notes: Location: Home rt Problem: new rt Symptoms: have improved rt Condition: Stable rt Diagnosis - Near syncope rt Followup: rt - With: Private Physician - When: 2 - 3 days - Reason: Discharge Instructions: - Discharge Summary Sheet rt - Near-Syncope rt Forms: - Medication Reconciliation Form rt - Antibiotic Education rt - Prescription Opioid Use rt - Patient Portal Instructions rt - Leadership Thank You Letter rt Signatures: Dispatcher [employer] EDJoao Pickett, RN RN Zoie Bar RN RN db Heath Damian MD MD rt Corrections: (The following items were deleted from the chart) 12:59 12:59 BASIC METABOLIC PANEL+C.LAB.BRZ ordered. EDMS EDMS 12:59 12:59 CBC+H.LAB.BRZ ordered. EDMS EDMS 12:59 12:59 HEPATIC FUNCTION+C.LAB.BRZ ordered. EDMS EDMS 12:59 12:59 MAGNESIUM+C.LAB.BRZ ordered. EDMS EDMS 12:59 12:59 Troponin High Sensitivity+C.LAB.BRZ ordered. EDMS EDMS 12:59 12:59 Chest Single View+RAD.RAD.BRZ ordered. EDMS EDMS
--- NOTE | 2024-07-25 16:46 | ER ---
Nurse's Notes [facility] Name: Garret Castro Age: 69 yrs Sex: Male : 1955 Arrival Date: 07/25/2024 Time: 12:18 Bed 3 Private MD: Diagnosis: Near syncope Presentation: 07/25 12:53 Chief complaint: Patient states: DIZZINESS AND MULTIPLE FALLS THAT HAVE BEEN GETTING db WORSE. DECREASED ENERGY. DENIES SERIOUS INJURIES. DOES HAVE ABRASION TO RIGHT ELBOW. DOES WORK OUT. COMPLAINS OF COUGH THAT HAS BEEN ONGOING. Coronavirus screen: Client denies travel out of the [place] in the last 14 days. At this time, the client does not indicate any symptoms associated with coronavirus-19. Ebola Screen: Patient negative for fever greater than or equal to 101.5 degrees Fahrenheit, and additional compatible Ebola Virus Disease symptoms Patient denies exposure to infectious person. Patient denies travel to an Ebola-affected area in the 21 days before illness onset. No symptoms or risks identified at this time. Initial Sepsis Screen: Does the patient meet any 2 criteria? No. Patient's initial sepsis screen is negative. Does the patient have a suspected source of infection? No. Patient's initial sepsis screen is negative. Risk Assessment: Do you want to hurt yourself or someone else? Patient reports no desire to harm self or others. Onset of symptoms was July 18, 2024. 12:53 Method Of Arrival: Ambulatory db 12:53 Acuity: JOSH 3 db Triage Assessment: 12:55 General: Appears in no apparent distress. comfortable, Behavior is calm, cooperative, db appropriate for age. Pain: Denies pain. Neuro: Level of Consciousness is awake, alert, obeys commands, Oriented to person, place, time, situation, Reports dizziness. Respiratory: Airway is patent Respiratory effort is even, unlabored, Respiratory pattern is regular, symmetrical. Historical: - Allergies: 12:55 No Known Allergies; db - PMHx: 12:55 Anxiety; Hypercholesterolemia; depressive disorder; Hypertensive disorder; db 12:57 IRREGULAR HEART BEAT; db - PSHx: 12:55 Cardiac Ablation (en); db - Immunization history:: Adult Immunizations unknown. - Infectious Disease History:: Denies. - Social history:: Smoking status: Patient denies any tobacco usage or history of. - Family history:: not pertinent. Screenin:04 [facility] ED Fall Risk Assessment (Adult) History of falling in the last 3 months, bp including since admission No falls in past 3 months (0 pts) Confusion or Disorientation No (0 pts) Intoxicated or Sedated No (0 pts) Impaired Gait No (0 pts) Mobility Assist Device Used No (0 pt) Altered Elimination No (0 pt) Score/Fall Risk Level 0 - 2 = Low Risk Oriented to surroundings. Abuse screen: Denies threats or abuse. Denies injuries from another. Nutritional screening: No deficits noted. Tuberculosis screening: No symptoms or risk factors identified. Assessment: 15:04 General: Appears in no apparent distress. comfortable, Behavior is cooperative, bp appropriate for age, anxious. 16:39 Reassessment: Patient appears in no apparent distress at this time. Patient is alert, bp oriented x 3, equal unlabored respirations, skin warm/dry/pink. Patient states symptoms have improved. Vital Signs: 12:53 BP 121 / 68; Pulse 84; Resp 16; Temp 98.4(O); Pulse Ox 98% on R/A; Weight 88.45 kg; db Height 5 ft. 10 in. ; 16:39 BP 124 / 71; Pulse 76; Resp 16; Pulse Ox 99% ; bp 12:53 Body Mass Index 27.98 (88.45 kg, 177.8 cm) db [place] Coma Score: 12:53 Eye Response: spontaneous(4). Motor Response: obeys commands(6). Verbal Response: db oriented(5). Total: 15. Trauma Score (Adult): 12:53 Eye Response: spontaneous(1); Verbal Response: oriented(1); Motor Response: obeys db commands(2); Systolic BP: > 89 mm Hg(4); Respiratory Rate: 10 to 29 per min(4); Yessica Score: 15; Trauma Score: 12 ED Course: 12:21 Patient arrived in ED. im 12:37 Heath Damian MD is Attending Physician. rt 12:54 Triage completed. db 12:55 Arm band placed on left wrist. db 14:01 XRAY Chest (1 view) In Process Unspecified. EDMS 14:44 Joao Sidhu, RN is Primary Nurse. bp 15:03 Initial lab(s) drawn, by me, sent to lab. EKG done, by ED staff, reviewed by Heath Damian MD. Inserted saline lock: 20 gauge in right antecubital area, using aseptic technique. Blood collected. Flushed with 10 mL NS. 15:04 Patient has correct armband on for positive identification. bp 17:02 No provider procedures requiring assistance completed. IV discontinued, intact, bp bleeding controlled, No redness/swelling at site. Pressure dressing applied. Administered Medications: 15:00 Drug: NS 0.9% IV 1000 ml IV at 1 bolus Per protocol; to be given as a bolus over 60 bp minutes Route: IV; Rate: 1 bolus; Site: right antecubital; 17:03 Follow up: IV Status: Completed infusion bp Medication: 16:39 VIS not applicable for this client. bp Outcome: 16:45 Discharge ordered by . rt 17:02 Discharged to home ambulatory, with family, bp 17:02 Condition: stable 17:02 Discharge instructions given to patient, Instructed on discharge instructions, follow up and referral plans. Demonstrated understanding of instructions, follow-up care, 17:03 Patient left the ED. bp Signatures: Dispatcher [employer] EDMS Joao Sidhu RN RN Zoie Bar RN RN db Heath Damian MD MD rt Deepthi Green im Corrections: (The following items were deleted from the chart) 12:55 12:53 Onset of symptoms was July 25, 2024 db db 12:57 12:53 BP 121 / 68; Pulse 84bpm; Resp 16bpm; Pulse Ox 98% RA; db db 12:58 12:53 Chief complaint: Patient states: DIZZINESS AND MULTIPLE FALLS THAT HAVE BEEN db GETTING WORSE. DECREASED ENERGY. DENIES SERIOUS INJURIES. DOES HAVE ABRASION TO RIGHT ELBOW. DOES WORK OUT. db 12:58 12:53 BP 121 / 68; Pulse 84bpm; Resp 16bpm; Pulse Ox 98% RA; Temp 98.4F Oral; db db
[2024-07-25 17:31] VITALS: TEMP 98.4
[2024-07-25 17:37] VITALS: BP 124/71; O2SAT 99
== END 2024-07-25 17:03 | disposition home or self-care (01) ==
LOC: ER 12:18
DX: R55 Syncope and collapse (principal); R53.1 Weakness; R05.9 Cough, unspecified; I10 Essential (primary) hypertension
CPT/HCPCS: 85025; 80048; 36415; 83735; 80076; 84484; 71045; J7030; 93005